=== PATIENT | female | born 1945 | race Caucasian/White ===

== ENCOUNTER 2020-03-17 11:59 | Outpatient (REF) | payer MEDICARE, SELFPAY ==
[2020-03-17 14:46] LABS: Free T4 (Free Thyroxine) 1.01 ng/dL (0.71-1.85); Thyroid Stimulating Hormone 0.69 uIU/mL (0.32-4.0)
[2020-03-19 07:58] LABS: Triiodothyronine T3 Free 3.1 pg/mL (2.3-4.2)
== END 2020-03-17 12:00 | disposition home or self-care (01) ==
LOC: HO.10HDL 11:59
PROVIDERS: Visit Provider Internal Medicine Endocrinology, Diabetes & Metabolism
DX: E05.20 Thyrotoxicosis with toxic multinodular goiter without thyrotoxic crisis or storm (principal)
CPT/HCPCS: 84439; 84443; 84481

== ENCOUNTER → 2020-03-18 09:56 | Outpatient (BNVA) | payer MEDICARE, SELFPAY | PROVIDERS: PCP Internal Medicine; Visit Provider Internal Medicine Endocrinology, Diabetes & Metabolism | DX: E05.20 Thyrotoxicosis with toxic multinodular goiter without thyrotoxic crisis or storm (principal) | CPT/HCPCS: 99212 ==

== ENCOUNTER 2020-07-05 09:08 | Outpatient (REF) | payer MEDICARE, SELFPAY ==
[2020-07-05 12:23] LABS: Alanine Aminotransferase 15 U/L (0-31); Anion Gap 14 (12-20); Aspartate Amino Transferase 18 U/L (5-31); Blood Urea Nitrogen 15 mg/dL (9-16); Calcium 8.9 mg/dL (8.4-10.2); Carbon Dioxide 26 mmol/L (22-29); Chloride 104 mmol/L (96-108); Cholesterol 228 mg/dL; Estimated Glomerular Filt Rate > 60; Glucose Fasting 98 mg/dL (60-99); HDL Cholesterol 55 mg/dL; LDL Cholesterol Calculated 144 mg/dl; Potassium 3.9 mmol/L (3.3-5.1); Sodium 140 mmol/L (135-145); Triglycerides 147 mg/dL
[2020-07-05 12:45] LABS: SARS COV2 IgG Negative (Negative)
== END 2020-07-05 09:09 | disposition home or self-care (01) ==
LOC: HO.HMGCLDS 09:08
PROVIDERS: PCP Internal Medicine; Visit Provider Internal Medicine
DX: E05.20 Thyrotoxicosis with toxic multinodular goiter without thyrotoxic crisis or storm (principal); M81.0 Age-related osteoporosis without current pathological fracture; I10 Essential (primary) hypertension; Z01.84 Encounter for antibody response examination
CPT/HCPCS: 36415; 80048; 80061; 82306; 84450; 84460; 86769

== ENCOUNTER 2020-08-25 10:43 | Outpatient (REF) | payer MEDICARE, SELFPAY ==
[2020-08-25 14:48] LABS: Free T4 (Free Thyroxine) 0.94 ng/dL (0.71-1.85); Thyroid Stimulating Hormone 0.72 uIU/mL (0.32-4.0)
[2020-08-26 06:16] LABS: Triiodothyronine T3 Total 101 ng/dL (76-181)
== END 2020-08-25 10:44 | disposition home or self-care (01) ==
LOC: HO.10HDL 10:43
PROVIDERS: Visit Provider Internal Medicine Endocrinology, Diabetes & Metabolism
DX: E05.20 Thyrotoxicosis with toxic multinodular goiter without thyrotoxic crisis or storm (principal)
CPT/HCPCS: 36415; 84439; 84443; 84480

== ENCOUNTER → 2020-08-31 13:12 | Outpatient (BNVA) | payer MEDICARE, SELFPAY | PROVIDERS: PCP Internal Medicine; Visit Provider Internal Medicine Endocrinology, Diabetes & Metabolism | DX: E05.20 Thyrotoxicosis with toxic multinodular goiter without thyrotoxic crisis or storm (principal) | CPT/HCPCS: 99212 ==

== ENCOUNTER 2020-10-28 08:55 | Outpatient (REF) | payer MEDICARE, SELFPAY ==
--- NOTE | ~2020-10-28 | MM_ITS ---
EXAMINATION: BONE DENSITOMETRY CLINICAL INDICATION: Age-related osteoporosis without current pathological fracture. COMPARISON: Previous BD dated 10/21/2018 and baseline BD dated 03/23/2008. TECHNIQUE: Using a [employer] DXA System (software version: 13.1) manufactured by [employer], dual-energy x-ray absorptiometry was performed of the lumbar spine and left hip. The images are of good technical quality. Summary results are attached. FINDINGS: AP SPINE L1-L3 (excluding L4): The data of L1-L4 has been changed to exclude the L4 vertebral body, because degenerative changes at this level may cause overestimation of lumbar spine density. Current: BMD 0.848 g/cm2, Z-score -0.8, T-score -2.7, osteoporosis, 3.0% increase from previous, 2.8% increase from baseline (<5% change is not significant). Prior: BMD 0.823 g/cm2. Baseline: BMD 0.825 g/cm2. LEFT FEMUR, NECK: Current: BMD 0.698 g/cm2, Z-score -0.4, T-score -2.4, osteopenia. Prior: BMD 0.726 g/cm2. Baseline: BMD 0.746 g/cm2. LEFT FEMUR, TOTAL: Current: BMD 0.789 g/cm2, Z-score 0.1, T-score -1.7, osteopenia, 0.3% increase from previous, 2.5% decrease from baseline (<5% change is not significant). Prior: BMD 0.787 g/cm2. Baseline: BMD 0.809 g/cm2. IDENTIFIED RISK FACTORS: Osteoporosis. Height loss. Low calcium intake. Secondary osteoporosis (hyperthyroidism). Menopause. HISTORY OF FRACTURE: None listed. MEDICATIONS: None listed. MM/XR DEXA axial skeleton IMPRESSION: 1. DIAGNOSIS: Osteoporosis based on the lowest T-score value of -2.7 in the lumbar spine applying World Health Organization criteria. 2. 10-YEAR FRACTURE RISK PREDICTION, FRAX: Major osteoporotic fracture (clinical spine, forearm, hip or shoulder) 17.6%. Hip fracture 5.7%. 3. Treatment Recommendations: NOF guidelines recommend consideration for treatment in postmenopausal women and men age 50 and older presenting with the following: -A hip or vertebral (clinical or morphometric) fracture. -T-score less than or equal to -2.5 at the femoral neck or spine after appropriate evaluation to exclude secondary causes. -Low bone mass at the hip or spine and a 10-year fracture probability by FRAX of greater than or equal to 3% for hip fracture or greater than or equal to 20% for major osteoporotic fracture based on the [place] adapted WHO algorithm. 4. Other Recommendations: All treatment decisions require clinical judgment and consideration of individual patient factors, including patient preferences, comorbidities, previous drug use, risk factors not captured in the FRAX model (e.g. frailty, falls, vitamin D deficiency, increased bone turnover, interval significant decline in bone density) and possible under or overestimation of fracture risk by FRAX. Additional medical evaluation for secondary cause of low bone mineral density may be appropriate. FUTURE SCAN RECOMMENDATION: People with diagnosed cases of osteoporosis or at high risk for fracture should have regular bone mineral density tests. For patients eligible for Medicare, routine testing is allowed once every 2 years. The testing frequency can be increased to one year for patients who have rapidly progressing disease, those who are receiving or discontinuing medical therapy to restore bone mass, or have additional risk factors.
== END 2020-10-28 08:56 | disposition home or self-care (01) ==
LOC: HO.MAMMO 08:55
PROVIDERS: Visit Provider Internal Medicine
DX: Z13.820 Encounter for screening for osteoporosis (principal); M81.0 Age-related osteoporosis without current pathological fracture; Z78.0 Asymptomatic menopausal state
CPT/HCPCS: 77080

== ENCOUNTER 2021-03-01 08:47 | Outpatient (REF) | payer MEDICARE, SELFPAY ==
[2021-03-01 11:26] LABS: Alanine Aminotransferase 20 U/L (0-31); Albumin Level 4.1 g/dL (3.5-5.0); Alkaline Phosphatase 88 U/L (39-117); Anion Gap 10 (12-20); Aspartate Amino Transferase 18 U/L (5-31); Bilirubin Total 0.9 mg/dL (0.0-1.0); Blood Urea Nitrogen 18 mg/dL (9-16); Calcium 9.5 mg/dL (8.4-10.2); Carbon Dioxide 28 mmol/L (22-29); Chloride 107 mmol/L (96-108); Estimated Glomerular Filt Rate 59; Glucose Random 74 mg/dL (60-115); Phosphorus 3.7 mg/dL (2.7-4.5); Sodium 141 mmol/L (135-145); Total Protein 7.4 g/dL (6.5-8.0)
[2021-03-01 11:49] LABS: Free T4 (Free Thyroxine) 1.03 ng/dL (0.71-1.85); Thyroid Stimulating Hormone 0.86 uIU/mL (0.32-4.0); Vitamin D 25-OH Total 32.3 ng/mL (>30)
[2021-03-03 13:41] LABS: Calcium (PTHI) 9.7 mg/dL (8.6-10.4); PTHI 83 pg/mL (14-64)
[2021-03-03 14:45] LABS: Calcium, Ionized 5.2 mg/dL (4.8-5.6)
[2021-03-03 17:47] LABS: Thyroglobulin Antibodies <1 IU/mL (< or = 1); Thyroid Peroxidase Antibodies <1 IU/mL (<9)
[2021-03-03 20:10] LABS: Triiodothyronine T3 Total 115 ng/dL (76-181)
[2021-03-05 20:03] LABS: Prot Elec - Albumin 3.9 g/dL (3.8-4.8); Prot Elec - Alpha1 0.3 g/dL (0.2-0.3); Prot Elec - Alpha2 0.7 g/dL (0.5-0.9); Prot Elec - Beta 1 0.5 g/dL (0.4-0.6); Prot Elec - Beta 2 0.4 g/dL (0.2-0.5); Prot Elec - Gamma 1.4 g/dL (0.8-1.7); Prot Elec - Total Protein 7.2 g/dL (6.1-8.1)
[2021-03-05 21:07] LABS: Thyrotropin Receptor Antibody <1.00 IU/L (<=2.00)
[2021-03-07 15:47] LABS: Thyroid Stimulating Immunoglob <89 % baseline (<140)
[2021-03-07 20:01] LABS: N-Telopeptide 45 (see note); NTXCreaRU 92 mg/dL (20-275)
== END 2021-03-01 08:48 | disposition home or self-care (01) ==
LOC: HO.LAB 08:47
PROVIDERS: PCP Internal Medicine; Visit Provider Internal Medicine
DX: E05.90 Thyrotoxicosis, unspecified without thyrotoxic crisis or storm (principal); E04.2 Nontoxic multinodular goiter; E55.9 Vitamin D deficiency, unspecified; M81.0 Age-related osteoporosis without current pathological fracture
CPT/HCPCS: 36415; 80053; 82306; 82330; 82523; 83520; 83970; 84100; 84165; 84439; 84443; 84445; 84480; 86376; 86800; 99212

== ENCOUNTER 2021-03-04 09:46 | Outpatient (REF) | payer MEDICARE, SELFPAY ==
[2021-03-04 10:01] LABS: Total Volume 24 Hour Urine 1425 mL
[2021-03-04 10:16] LABS: Creatinine, 24Hr Urine 1.3 G/Day (1.0-2.0); Creatinine, mg/dL 88.73
[2021-03-06 18:16] LABS: Calcium, 24 Hr Urine 363 mg/24 h; Calcium/Creatinine Ratio 297 mg/g creat (30-275); Creatinine 24Hr Urine 1.23 g/24 h (0.50-2.15)
== END 2021-03-04 09:47 | disposition home or self-care (01) ==
LOC: HO.LNP 09:46
PROVIDERS: Visit Provider Internal Medicine
DX: M81.0 Age-related osteoporosis without current pathological fracture (principal)
CPT/HCPCS: 82340; 82570

== ENCOUNTER 2021-03-23 12:54 | Outpatient (REF) | payer MEDICARE, SELFPAY ==
--- NOTE | ~2021-03-23 | US_ITS ---
EXAMINATION: US THYROID CLINICAL INFORMATION: Nontoxic multinodular goiter. COMPARISON: Ultrasound soft tissue head/neck thyroid dated 10/01/2018 and 06/18/2017. TECHNIQUE: Linear transducer grayscale and color Doppler examination with attention to the region of the thyroid. FINDINGS: SIZE: Measurements of the thyroid lobes and nodules are given in sagittal, anteroposterior and transverse dimensions respectively. Right Thyroid Lobe: 6.7 x 3.2 x 3.3 cm, volume 36.9 mL. Previously 5.4 x 2.6 x 3.0 cm, volume 22 mL. Parenchyma: The gland echotexture is heterogeneous. Thyroid vascularity is normal. Left Thyroid Lobe: 6.9 x 3.4 x 3.7 cm, volume 44.4 mL. Previously 5.0 x 2.5 x 3.4 cm, volume 25 mL. Parenchyma: The gland echotexture is heterogeneous. Thyroid vascularity is normal. Isthmus: 1.1 cm in maximum AP dimension. Previously 0.9 cm. Estimated total number of nodules greater than or equal to 1 cm: 6 to 10. Reporting Consultant nodules are described as follows: 1. Location: Left mid. Size: 4.0 x 2.1 x 2.5 cm, volume 11.2 mL. Previously: 3.6 x 1.9 x 2.6 cm, volume 9.3 mL. Nodule characteristics: Composition: Solid/almost completely solid (2). Echogenicity: Isoechoic (1). Shape: Not taller than wide (0). Margins: Smooth (0). Echogenic Foci: None (0). ACR TI-RADS total points: 3 ACR TI-RADS category: 3 Significant change in size (>/= 20% in 2 dimensions and minimal increase of 2 mm or 50% or greater increase in volume): No Change in features: No Change in ACR TI-RADS risk category: No 2. Location: Left mid. Size: 1.6 x 0.8 x 1.2 cm, volume 0.9 mL. Previously: 1.8 x 1.8 x 0.6 cm, volume 1.0 mL. Nodule characteristics: Composition: Spongiform (0). Echogenicity: Anechoic (0). Shape: Not taller than wide (0). Margins: Smooth (0). Echogenic Foci: None (0). ACR TI-RADS total points: 0 ACR TI-RADS category: 1 Significant change in size (>/= 20% in 2 dimensions and minimal increase of 2 mm or 50% or greater increase in volume): No Change in features: No Change in ACR TI-RADS risk category: No 3. Location: Right mid. Size: 2.3 x 1.6 x 2.1 cm, volume 4.0 mL. Previously: 2.1 x 1.5 x 1.7 cm, volume 2.8 mL. Nodule characteristics: Composition: Solid/almost completely solid (2). Echogenicity: Cannot be determined (1). Shape: Not taller than wide (0). Margins: Ill-defined (0). Echogenic Foci: None (0). ACR TI-RADS total points: 3 ACR TI-RADS category: 3 Significant change in size (>/= 20% in 2 dimensions and minimal increase of 2 mm or 50% or greater increase in volume): No Change in features: No Change in ACR TI-RADS risk category: No 4. Location: Right superior. Size: 1.1 x 0.8 x 1.5 cm, volume 0.7 mL. Previously: 1.4 x 1.0 x 1.5 cm, volume 1.1 mL. Nodule characteristics: Composition: Spongiform (0). Echogenicity: Anechoic (0). Shape: Not taller than wide (0). Margins: Smooth (0). Echogenic Foci: None (0). ACR TI-RADS total points: 0 ACR TI-RADS category: 1 Significant change in size (>/= 20% in 2 dimensions and minimal increase of 2 mm or 50% or greater increase in volume): No Change in features: No Change in ACR TI-RADS risk category: No NODES: No lymphadenopathy is seen in the tissue surrounding the thyroid gland. US/US thyroid IMPRESSION: 1. Bilateral thyroid nodules are redemonstrated. The 4.0 cm in maximal diameter left thyroid interpolar nodule meets ACR biopsy criteria and is amenable to ultrasound-guided biopsy, if clinically indicated and not already performed. Given the interim relative stability, however, continued ultrasound evaluation without biopsy at this time is a further reasonable management option. 2. There is a diffuse goiter. 3. There is heterogeneous thyroid echotexture, which can be associated with thyroiditis. ACR TI-RADS RECOMMENDATION REFERENCE: Ultrasound-guided fine-needle aspiration, followup ultrasound, no further follow up. * TR1 (0 point) and TR 2 (2 points): No FNA or follow up * TR3 (3 points): FNA if more than or equal to 2.5 cm in maximum dimension, followup ultrasound in 1, 3 and 5 years if 1.5 to 2.4 cm in maximum dimension. * TR4 (4-6 points): FNA if more than or equal to 1.5 cm in maximum dimension, followup ultrasound in 1, 2, 3 and 5 years if 1 to 1.4 cm in maximum dimension. * TR5 (more than or equal to 7 points): FNA if more than or equal to 1 cm in maximum dimension, followup ultrasound every year for 5 years if 0.5 to 0.9 cm in maximum dimension. * TR3, TR4 or TR5 nodules that are below the size threshold for follow up receive no follow up.
== END 2021-03-23 12:55 | disposition home or self-care (01) ==
LOC: HO.US 12:54
PROVIDERS: PCP Internal Medicine; Visit Provider Internal Medicine
DX: E04.2 Nontoxic multinodular goiter (principal)
CPT/HCPCS: 76536

== ENCOUNTER → 2021-04-17 11:45 | Outpatient (BNVA) | payer MEDICARE, SELFPAY | PROVIDERS: PCP Internal Medicine; Visit Provider Internal Medicine | CPT/HCPCS: Q3014 ==

== ENCOUNTER → 2021-05-08 10:15 | Outpatient (BNV) | payer MEDICARE, SELFPAY | PROVIDERS: PCP Internal Medicine; Referring Provider Internal Medicine; Visit Provider Internal Medicine Medical Oncology | DX: D47.2 Monoclonal gammopathy (principal); E89.0 Postprocedural hypothyroidism | CPT/HCPCS: 99203; 99213 ==

== ENCOUNTER 2021-05-09 08:52 | Outpatient (REF) | payer MEDICARE, SELFPAY ==
--- NOTE | ~2021-05-09 | MM_ITS ---
EXAMINATION: MM SCREENING DIGITAL BREAST TOMOSYNTHESIS, BILATERAL CLINICAL INFORMATION: Screening. Asymptomatic. The lifetime risk of breast cancer based on the Tyrer-Cuzick Model is 2%. COMPARISON: Mammography: 01/11/2020, 01/29/2019, 01/06/2019, 12/06/2017, 10/05/2016 TECHNIQUE: Digital breast tomosynthesis is performed in both the craniocaudal and mediolateral oblique views along with computer-aided detection (CAD). Synthesized 2D images are generated from the tomosynthesis. FINDINGS: There are scattered areas of fibroglandular density (ACR BI-RADS breast composition Category b). There are no significant masses, abnormal calcifications, or other abnormalities. Parenchymal pattern is similar to prior studies. No developing density or interval mass or architectural abnormality. There are scattered bilateral benign calcifications. The axilla are unremarkable. No significant changes from prior studies. MM/MM tomosynthesis screening BI IMPRESSION: No mammographic evidence of malignancy. ASSESSMENT: BI-RADS 2: Benign RECOMMENDATION: Routine annual mammography screening. This patient's information was entered into a reminder system with a target due date for their next mammogram.
== END 2021-05-09 08:53 | disposition home or self-care (01) ==
LOC: HO.MAMMO 08:52
PROVIDERS: Visit Provider Internal Medicine
DX: Z12.31 Encounter for screening mammogram for malignant neoplasm of breast (principal)
CPT/HCPCS: 77063; 77067

== ENCOUNTER 2021-07-06 07:53 | Outpatient (REF) | payer MEDICARE, SELFPAY ==
--- NOTE | 2021-07-06 09:16 | PM.OP ---
Brief Operative Note Date of Service: 07/06/21 Pre-op diagnosis: Multinodular Thyroid Procedure: This is doctor Cynthia Shah. This is an ultrasound-guided fine-needle aspiration report. Date of Examination: Indication: Multinodular Thyroid Porcedure: Procedure was explained to the patient. Alternatives, the risk and benefits were discussed. Written consent was obtained. A time-out was also obtained. After sterile preparation, fine-needle aspiration of a left mid pole 4.0 cm thyroid nodule was performed using direct ultrasound guidance to confirm accurate needle placement. Four aspirations were made using 27 gauge needles. Samples were submitted for cytology. One pass was dedicated for [employer] sequencing mirror department supervisor testing. Our attention was then turned to the right lobe. Fine-needle aspiration of a right mid pole 2.3 cm thyroid nodule was performed using direct ultrasound guidance to confirm accurate needle placement. Six aspirations were made using 27 gauge needles. Samples were submitted for cytology. One pass was dedicated for [employer] sequencing mirror department supervisor testing. The patient tolerated the procedure well. Aftercare instructions were provided. Impression: Uncomplicated fine needle aspiration biopsy of a left mid pole 4.0 cm thyroid nodule and a right mid pole 2.3 cm thyroid nodule under ultrasound guidance. Surgeon: Cynthia Shah, DO Was an Information Technology Advisor used for this Procedure?: No Estimated blood loss (mL): 0
== END 2021-07-06 07:54 | disposition home or self-care (01) ==
LOC: HO.US 07:53
PROVIDERS: Visit Provider Internal Medicine
DX: E04.2 Nontoxic multinodular goiter (principal)
CPT/HCPCS: 10005; 10006; 88172; 88173; 88177; 88305

== ENCOUNTER 2021-08-08 09:40 | Outpatient (REF) | payer MEDICARE, SELFPAY ==
[2021-08-08 11:24] LABS: Free T4 (Free Thyroxine) 1.07 ng/dL (0.71-1.85)
[2021-08-10 06:12] LABS: Triiodothyronine T3 Total 107 ng/dL (76-181)
== END 2021-08-08 09:41 | disposition home or self-care (01) ==
LOC: HO.LAB 09:40
PROVIDERS: PCP Internal Medicine; Visit Provider Internal Medicine
DX: E05.90 Thyrotoxicosis, unspecified without thyrotoxic crisis or storm (principal)
CPT/HCPCS: 36415; 84439; 84443; 84480

== ENCOUNTER → 2021-08-09 07:43 | Outpatient (BNVA) | payer MEDICARE, SELFPAY | PROVIDERS: PCP Internal Medicine; Visit Provider Internal Medicine | DX: E05.90 Thyrotoxicosis, unspecified without thyrotoxic crisis or storm (principal); E04.2 Nontoxic multinodular goiter; E55.9 Vitamin D deficiency, unspecified; E21.3 Hyperparathyroidism, unspecified; M81.0 Age-related osteoporosis without current pathological fracture | CPT/HCPCS: Q3014 ==

== ENCOUNTER → 2021-10-30 08:10 | Outpatient (BNVA) | payer MEDICARE, SELFPAY | PROVIDERS: PCP Internal Medicine; Visit Provider Internal Medicine | DX: E05.90 Thyrotoxicosis, unspecified without thyrotoxic crisis or storm (principal); E04.2 Nontoxic multinodular goiter; E21.3 Hyperparathyroidism, unspecified; M81.0 Age-related osteoporosis without current pathological fracture; E55.9 Vitamin D deficiency, unspecified | CPT/HCPCS: Q3014 ==

== ENCOUNTER 2021-11-02 08:31 | Outpatient (REF) | payer MEDICARE, SELFPAY ==
[2021-11-02 08:48] LABS: MANUAL DIFF FLAG NO
[2021-11-02 08:53] LABS: Basophils Percent Auto 0.4 % (0-2); Eosinophils Absolute Auto 0.1 X10*3/uL (0.0-0.4); Hematocrit 42.9 % (37.0-47.0); Hemoglobin 14.2 g/dl (12.0-16.0); Imm Gran Abs Auto 0.02 X10*3/uL (0.00-0.03); Imm Gran Pct Auto 0.4 % (0.0-0.4); Lymphocytes Absolute Auto 1.2 X10*3/uL (1.2-4.9); Lymphocytes Percent Auto 24.5 % (20-40); Mean Corpuscular HGB Conc 33.1 g/dl (31.0-35.0); Mean Corpuscular Hemoglobin 29.5 pg (27.0-33.0); Mean Corpuscular Volume 89.2 fL (80.0-98.0); Mean Platelet Volume 9.1 fL (9.4-12.3); Monocytes Absolute Auto 0.4 X10*3/uL (0.1-1.2); Monocytes Percent Auto 7.4 % (2-11); Neutrophils Absolute Auto 3.3 x10*3/uL (2.0-8.3); Neutrophils Percent Auto 65.3 % (45-73); Platelet Count 200 X10*3/uL (160-400); Red Blood Count 4.81 X10*6/uL (4.20-5.50); Red Cell Distribution Width 12.4 % (11.0-16.0)
[2021-11-02 09:24] LABS: Alanine Aminotransferase 17 U/L (0-31); Alkaline Phosphatase 82 U/L (39-117); Anion Gap 11 (12-20); Aspartate Amino Transferase 17 U/L (5-31); Bilirubin Total 1.2 mg/dL (0.0-1.0); Blood Urea Nitrogen 17 mg/dL (9-16); Carbon Dioxide 25 mmol/L (22-29); Chloride 109 mmol/L (96-108); Estimated Glomerular Filt Rate 54; Glucose Random 87 mg/dL (60-115); Phosphorus 3.1 mg/dL (2.7-4.5); Potassium 4.2 mmol/L (3.3-5.1); Sodium 141 mmol/L (135-145); Total Protein 7.3 g/dL (6.5-8.0)
[2021-11-02 09:47] LABS: Free T4 (Free Thyroxine) 1.18 ng/dL (0.71-1.85); Vitamin D 25-OH Total 33.9 ng/mL (>30)
[2021-11-03 11:17] LABS: Calcium (PTHI) 9.2 mg/dL (8.6-10.4); PTHI 78 pg/mL (16-77)
[2021-11-07 13:41] LABS: IgA 390 mg/dL (70-320); IgG 1387 mg/dL (600-1540); IgM 115 mg/dL (50-300)
== END 2021-11-02 08:32 | disposition home or self-care (01) ==
LOC: HO.LAB 08:31
PROVIDERS: Absent Provider Internal Medicine Medical Oncology; PCP Internal Medicine; Visit Provider Internal Medicine
DX: E21.3 Hyperparathyroidism, unspecified (principal); E04.2 Nontoxic multinodular goiter; E05.90 Thyrotoxicosis, unspecified without thyrotoxic crisis or storm; E55.9 Vitamin D deficiency, unspecified; R77.8 Other specified abnormalities of plasma proteins
CPT/HCPCS: 36415; 80053; 82306; 82784; 83970; 84100; 84439; 84443; 85025; 86334

== ENCOUNTER 2021-11-04 10:26 | Outpatient (REF) | payer MEDICARE, SELFPAY ==
[2021-11-04 11:42] LABS: Creatinine, mg/dL 60.78
[2021-11-04 13:18] LABS: Creatinine, 24Hr Urine 0.8 G/Day (1.0-2.0); Total Volume 24 Hour Urine 1350 mL
[2021-11-12 07:17] LABS: Calcium/Creatinine Ratio 206; Creatinine 24Hr Urine 0.85
[2021-11-12 07:18] LABS: Calcium, 24 Hr Urine 176
== END 2021-11-04 10:27 | disposition home or self-care (01) ==
LOC: HO.LNP 10:26
PROVIDERS: Visit Provider Internal Medicine
DX: E21.0 Primary hyperparathyroidism (principal)
CPT/HCPCS: 82340; 82570

== ENCOUNTER 2022-03-22 09:27 | Outpatient (REF) | payer MEDICARE, SELFPAY ==
[2022-03-22 12:20] LABS: Alanine Aminotransferase 17 U/L (0-31); Albumin Level 3.9 g/dL (3.5-5.0); Alkaline Phosphatase 76 U/L (39-117); Anion Gap 11 (12-20); Aspartate Amino Transferase 16 U/L (5-31); Bilirubin Total 1.2 mg/dL (0.0-1.0); Blood Urea Nitrogen 21 mg/dL (9-16); Calcium 9.4 mg/dL (8.4-10.2); Carbon Dioxide 27 mmol/L (22-29); Chloride 109 mmol/L (96-108); Estimated Glomerular Filt Rate 56; Glucose Random 93 mg/dL (60-115); Phosphorus 2.7 mg/dL (2.7-4.5); Sodium 143 mmol/L (135-145); Total Protein 6.9 g/dL (6.5-8.0); Vitamin D 25-OH Total 32.9 ng/mL (>30)
[2022-03-23 11:58] LABS: Calcium (PTHI) 9.3 mg/dL (8.6-10.4); PTHI 81 pg/mL (16-77)
== END 2022-03-22 09:28 | disposition home or self-care (01) ==
LOC: HO.10HDL 09:27
PROVIDERS: Visit Provider Internal Medicine
DX: E21.0 Primary hyperparathyroidism (principal); E55.9 Vitamin D deficiency, unspecified
CPT/HCPCS: 36415; 80053; 82306; 83970; 84100

== ENCOUNTER 2022-03-26 08:37 | Outpatient (REF) | payer MEDICARE, SELFPAY ==
[2022-03-26 11:49] LABS: Alanine Aminotransferase 16 U/L (0-31); Albumin Level 3.8 g/dL (3.5-5.0); Alkaline Phosphatase 87 U/L (39-117); Aspartate Amino Transferase 17 U/L (5-31); Bilirubin Direct 0.3 mg/dL (0.0-0.5); Bilirubin Total 0.9 mg/dL (0.0-1.0); Free T4 (Free Thyroxine) 1.05 ng/dL (0.71-1.85); Thyroid Stimulating Hormone 0.92 uIU/mL (0.32-4.0); Total Protein 6.7 g/dL (6.5-8.0); Vitamin D 25-OH Total 31.9 ng/mL (>30)
[2022-03-27 17:08] LABS: Triiodothyronine T3 Total 104 ng/dL (76-181)
== END 2022-03-26 08:38 | disposition home or self-care (01) ==
LOC: HO.10HDL 08:37
PROVIDERS: Visit Provider Internal Medicine
DX: E04.2 Nontoxic multinodular goiter (principal); E55.9 Vitamin D deficiency, unspecified; E05.90 Thyrotoxicosis, unspecified without thyrotoxic crisis or storm; E21.3 Hyperparathyroidism, unspecified; M81.0 Age-related osteoporosis without current pathological fracture
CPT/HCPCS: 36415; 80076; 82306; 84439; 84443; 84480; 99212

== ENCOUNTER 2022-03-28 09:49 | Outpatient (REF) | payer MEDICARE, SELFPAY ==
[2022-03-28 11:10] LABS: Creatinine, mg/dL 83.01
[2022-03-28 14:42] LABS: Creatinine, 24Hr Urine 0.9 G/Day (1.0-2.0); Total Volume 24 Hour Urine 1100 mL
[2022-03-30 20:53] LABS: Calcium, 24 Hr Urine 256 mg/24 h; Calcium/Creatinine Ratio 288 mg/g creat (30-275); Creatinine 24Hr Urine 0.89 g/24 h (0.50-2.15)
== END 2022-03-28 09:50 | disposition home or self-care (01) ==
LOC: HO.LNP 09:49
PROVIDERS: Visit Provider Internal Medicine
DX: E21.3 Hyperparathyroidism, unspecified (principal)
CPT/HCPCS: 82340; 82570

== ENCOUNTER 2022-04-17 07:34 | Outpatient (REF) | payer MEDICARE, SELFPAY ==
[2022-04-17 07:54] LABS: MANUAL DIFF FLAG NO
[2022-04-17 08:34] LABS: Basophils Percent Auto 0.7 % (0-2); Eosinophils Absolute Auto 0.1 X10*3/uL (0.0-0.4); Eosinophils Percent Auto 2.2 % (0-4); Hematocrit 43.2 % (37.0-47.0); Hemoglobin 14.5 g/dl (12.0-16.0); Imm Gran Abs Auto 0.01 X10*3/uL (0.00-0.03); Imm Gran Pct Auto 0.2 % (0.0-0.4); Lymphocytes Absolute Auto 1.4 X10*3/uL (1.2-4.9); Lymphocytes Percent Auto 31.5 % (20-40); Mean Corpuscular HGB Conc 33.6 g/dl (31.0-35.0); Mean Corpuscular Hemoglobin 30.5 pg (27.0-33.0); Mean Corpuscular Volume 90.9 fL (80.0-98.0); Mean Platelet Volume 9.7 fL (9.4-12.3); Monocytes Absolute Auto 0.4 X10*3/uL (0.1-1.2); Monocytes Percent Auto 7.7 % (2-11); Neutrophils Absolute Auto 2.6 x10*3/uL (2.0-8.3); Neutrophils Percent Auto 57.7 % (45-73); Platelet Count 217 X10*3/uL (160-400); Red Blood Count 4.75 X10*6/uL (4.20-5.50); Red Cell Distribution Width 12.4 % (11.0-16.0); White Blood Count 4.6 X10*3/uL (4.8-10.8)
[2022-04-17 08:59] LABS: Alanine Aminotransferase 13 U/L (0-31); Alkaline Phosphatase 69 U/L (39-117); Anion Gap 11 (12-20); Aspartate Amino Transferase 17 U/L (5-31); Bilirubin Total 1.9 mg/dL (0.0-1.0); Blood Urea Nitrogen 18 mg/dL (9-16); Calcium 9.2 mg/dL (8.4-10.2); Carbon Dioxide 27 mmol/L (22-29); Chloride 108 mmol/L (96-108); Estimated Glomerular Filt Rate 60; Glucose Random 109 mg/dL (60-115); Lactate Dehydrogenase 150 U/L (122-220); Sodium 142 mmol/L (135-145); Total Protein 7.1 g/dL (6.5-8.0)
[2022-04-20 14:44] LABS: IgA 397 mg/dL (70-320); IgG 1387 mg/dL (600-1540); IgM 120 mg/dL (50-300)
[2022-04-20 15:29] LABS: Haptoglobin 102 mg/dL (43-212)
== END 2022-04-17 07:35 | disposition home or self-care (01) ==
LOC: HO.LAB 07:34
PROVIDERS: Internal Medicine Medical Oncology; PCP Internal Medicine; Visit Provider Internal Medicine
DX: R17 Unspecified jaundice (principal); D47.2 Monoclonal gammopathy
CPT/HCPCS: 36415; 80053; 82784; 83010; 83615; 85025; 86334

== ENCOUNTER 2022-05-02 08:56 | Outpatient (REF) | payer MEDICARE, SELFPAY ==
--- NOTE | ~2022-05-02 | US_ITS ---
EXAMINATION: US ABDOMEN COMPLETE CLINICAL INFORMATION: Unspecified jaundice. COMPARISON: Renal ultrasound 05/11/2011 and 10/28/2008. TECHNIQUE: Real-time imaging of the abdominal viscera. FINDINGS: PANCREAS: The pancreatic duct is mildly prominent at 3 mm. No pancreatic masses are seen. The tail is obscured by bowel gas. ABDOMINAL AORTA: The proximal, mid, and distal segments are normal in caliber. INFERIOR VENA CAVA: Visualized portions are normal. LIVER: The liver is normal in size. The liver contour is normal. There is mild increased liver parenchymal echogenicity suggesting hepatic steatosis. No focal hepatic lesion. There is no intrahepatic biliary duct dilatation seen. GALLBLADDER: Normal. The gallbladder is physiologically distended without evidence of stones, sludge, polyps, wall thickening or pericholecystic fluid. COMMON BILE DUCT: Normal in caliber measuring 0.3 cm in diameter. RIGHT KIDNEY: A 6 mm non-obstructing stone is present in the mid kidney. No hydronephrosis or focal parenchymal lesions. The kidney measures 9.7 cm in maximum dimension. LEFT KIDNEY: A 1.5 cm parapelvic cyst is present which needs no additional imaging or followup. Multiple echogenic non-shadowing foci seen, most likely vascular. No hydronephrosis or definite renal calculi. The kidney measures 9.8 cm in maximum dimension. SPLEEN: Normal. The spleen measures 8.4 cm in maximum dimension. FREE FLUID: None. US/US abdomen complete IMPRESSION: 1. Echogenic liver suggesting hepatic steatosis. 2. Non-obstructing right renal calculus.
== END 2022-05-02 08:57 | disposition home or self-care (01) ==
LOC: HO.US 08:56
PROVIDERS: PCP Internal Medicine; Visit Provider Internal Medicine
DX: R17 Unspecified jaundice (principal)
CPT/HCPCS: 76700

== ENCOUNTER 2022-06-22 07:49 | Outpatient (REF) | payer MEDICARE, SELFPAY ==
--- NOTE | ~2022-06-22 | XR_ITS ---
EXAMINATION: XR SHOULDER, RIGHT CLINICAL INFORMATION: Pain COMPARISON: None TECHNIQUE: Three views of the right shoulder. FINDINGS: No evidence of a fracture or dislocation. Mild degenerative changes of the glenohumeral and acromioclavicular articulations. Calcific tendinosis is present. Incidental note of aortic atherosclerosis. Soft tissues are otherwise unremarkable. XR/XR shoulder RT min 2V IMPRESSION: Calcific tendinosis of the right shoulder.
== END 2022-06-22 07:50 | disposition home or self-care (01) ==
LOC: HO.HOSX 07:49
PROVIDERS: Visit Provider Physician Assistant
DX: M19.011 Primary osteoarthritis, right shoulder (principal); M75.81 Other shoulder lesions, right shoulder
CPT/HCPCS: 20610; 73030; 99202; J1040

== ENCOUNTER 2022-08-20 10:33 | Outpatient (REF) | payer MEDICARE, SELFPAY ==
[2022-08-20 14:08] LABS: Alanine Aminotransferase 13 U/L (0-31); Albumin Level 3.9 g/dL (3.5-5.0); Alkaline Phosphatase 73 U/L (39-117); Anion Gap 14 (12-20); Aspartate Amino Transferase 15 U/L (5-31); Bilirubin Total 1.3 mg/dL (0.0-1.0); Blood Urea Nitrogen 18 mg/dL (9-16); Calcium 8.4 mg/dL (8.4-10.2); Carbon Dioxide 24 mmol/L (22-29); Chloride 109 mmol/L (96-108); Estimated Glomerular Filt Rate > 60; Glucose Random 57 mg/dL (60-115); Phosphorus 3.6 mg/dL (2.7-4.5); Potassium 3.9 mmol/L (3.3-5.1); Sodium 143 mmol/L (135-145); Total Protein 6.8 g/dL (6.5-8.0)
[2022-08-20 14:15] LABS: Free T4 (Free Thyroxine) 1.45 ng/dL (0.71-1.85); Thyroid Stimulating Hormone 0.34 uIU/mL (0.32-4.0); Vitamin D 25-OH Total 44.6 ng/mL (>30)
[2022-08-22 06:08] LABS: Triiodothyronine T3 Total 98 ng/dL (76-181)
[2022-08-22 16:19] LABS: Calcium (PTHI) 8.3 mg/dL (8.6-10.4); PTHI 48 pg/mL (16-77)
== END 2022-08-20 10:34 | disposition home or self-care (01) ==
LOC: HO.10HDL 10:33
PROVIDERS: Visit Provider Internal Medicine
DX: E04.2 Nontoxic multinodular goiter (principal); E21.3 Hyperparathyroidism, unspecified; E55.9 Vitamin D deficiency, unspecified
CPT/HCPCS: 36415; 80053; 82306; 83970; 84100; 84439; 84443; 84480

== ENCOUNTER 2022-08-22 09:10 | Outpatient (REF) | payer MEDICARE, SELFPAY ==
[2022-08-22 18:18] LABS: Creatinine, mg/dL 83.61
[2022-08-22 19:05] LABS: Total Volume 24 Hour Urine 1150 mL
[2022-08-24 17:34] LABS: Calcium, 24 Hr Urine 189 mg/24 h; Calcium/Creatinine Ratio 198 mg/g creat (30-275); Creatinine 24Hr Urine 0.95 g/24 h (0.50-2.15)
== END 2022-08-22 09:11 | disposition home or self-care (01) ==
LOC: HO.10HDLNP 09:10
PROVIDERS: Visit Provider Internal Medicine
DX: E21.3 Hyperparathyroidism, unspecified (principal)
CPT/HCPCS: 82340; 82570

== ENCOUNTER → 2022-08-23 11:37 | Outpatient (BNVA) | payer MEDICARE, SELFPAY | PROVIDERS: PCP Internal Medicine; Visit Provider Internal Medicine | DX: E21.0 Primary hyperparathyroidism (principal); E04.2 Nontoxic multinodular goiter; E89.0 Postprocedural hypothyroidism; M81.0 Age-related osteoporosis without current pathological fracture; E55.9 Vitamin D deficiency, unspecified | CPT/HCPCS: 99212 ==

== ENCOUNTER 2022-09-14 09:30 | Outpatient (REF) | payer MEDICARE, SELFPAY ==
[2022-09-14 11:20] LABS: Albumin Level 3.7 g/dL (3.5-5.0); Phosphorus 3.2 mg/dL (2.7-4.5)
[2022-09-14 11:36] LABS: Free T4 (Free Thyroxine) 1.31 ng/dL (0.71-1.85)
[2022-09-17 14:18] LABS: Calcium (PTHI) 8.9 mg/dL (8.6-10.4); PTHI 42 pg/mL (16-77)
== END 2022-09-14 09:31 | disposition home or self-care (01) ==
LOC: HO.10HDL 09:30
PROVIDERS: Visit Provider Internal Medicine
DX: E21.0 Primary hyperparathyroidism (principal); E04.2 Nontoxic multinodular goiter; E89.0 Postprocedural hypothyroidism
CPT/HCPCS: 36415; 82040; 83970; 84100; 84439; 84443

== ENCOUNTER 2022-10-23 10:48 | Outpatient (REF) | payer MEDICARE, SELFPAY ==
[2022-10-23 13:29] LABS: Free T4 (Free Thyroxine) 1.17 ng/dL (0.71-1.85); Thyroid Stimulating Hormone 1.19 uIU/mL (0.32-4.0)
== END 2022-10-23 10:49 | disposition home or self-care (01) ==
LOC: HO.LAB 10:48
PROVIDERS: Visit Provider Internal Medicine
DX: E89.0 Postprocedural hypothyroidism (principal)
CPT/HCPCS: 36415; 84439; 84443

== ENCOUNTER 2022-12-25 09:20 | Outpatient (REF) | payer MEDICARE, SELFPAY ==
[2022-12-25 10:51] LABS: Alanine Aminotransferase 11 U/L (0-31); Albumin Level 3.8 g/dL (3.5-5.0); Alkaline Phosphatase 64 U/L (39-117); Anion Gap 11 (12-20); Aspartate Amino Transferase 16 U/L (5-31); Blood Urea Nitrogen 20 mg/dL (9-16); Calcium 8.6 mg/dL (8.4-10.2); Carbon Dioxide 28 mmol/L (22-29); Chloride 109 mmol/L (96-108); Estimated Glomerular Filt Rate > 60; Phosphorus 2.8 mg/dL (2.7-4.5); Potassium 3.6 mmol/L (3.3-5.1); Sodium 144 mmol/L (135-145); Total Protein 7.1 g/dL (6.5-8.0)
[2022-12-25 11:06] LABS: Free T4 (Free Thyroxine) 1.12 ng/dL (0.71-1.85); Thyroid Stimulating Hormone 1.58 uIU/mL (0.32-4.0)
[2022-12-25 11:09] LABS: Glucose Random 47 mg/dL (60-115)
[2022-12-26 11:53] LABS: Calcium (PTHI) 8.3 mg/dL (8.6-10.4); PTHI 41 pg/mL (16-77)
== END 2022-12-25 09:21 | disposition home or self-care (01) ==
LOC: HO.10HDL 09:20
PROVIDERS: Visit Provider Internal Medicine
DX: E21.0 Primary hyperparathyroidism (principal); E89.0 Postprocedural hypothyroidism; E04.2 Nontoxic multinodular goiter
CPT/HCPCS: 36415; 80053; 83970; 84100; 84439; 84443

== ENCOUNTER 2022-12-27 07:23 | Outpatient (REF) | payer MEDICARE, SELFPAY ==
[2022-12-27 08:07] LABS: Anion Gap 12 (12-20); Blood Urea Nitrogen 15 mg/dL (9-16); Calcium 8.8 mg/dL (8.4-10.2); Carbon Dioxide 26 mmol/L (22-29); Chloride 110 mmol/L (96-108); Estimated Glomerular Filt Rate 56; Glucose Fasting 110 mg/dL (60-99); Potassium 3.9 mmol/L (3.3-5.1); Sodium 144 mmol/L (135-145)
[2022-12-27 08:16] LABS: Cortisol Random 15.1 ug/dL
[2022-12-27 08:24] LABS: Free T4 (Free Thyroxine) 1.11 ng/dL (0.71-1.85); Insulin 9 uU/mL (2-29); Thyroid Stimulating Hormone 2.69 uIU/mL (0.32-4.0)
[2022-12-29 03:59] LABS: C Peptide 1.68 ng/mL (0.80-3.85); DHEA Sulfate 71 mcg/dL (4-157)
[2023-01-05 19:08] LABS: Insulin Auto Antibody <0.4 U/mL (<0.4)
[2023-01-07 07:54] LABS: Chlorpropamide None Detected; Glimepiride None Detected; Glipizide None Detected; Glyburide None Detected; Nateglinide None Detected; Pioglitazone None Detected; Repaglinide None Detected; Rosiglitazone None Detected; Tolazamide None Detected; Tolbutamide None Detected
== END 2022-12-27 07:24 | disposition home or self-care (01) ==
LOC: HO.LAB 07:23
PROVIDERS: PCP Internal Medicine; Visit Provider Internal Medicine
DX: E16.2 Hypoglycemia, unspecified (principal)
CPT/HCPCS: 36415; 80048; 80337; 82533; 82627; 83525; 84206; 84439; 84443; 84681; 86337

== ENCOUNTER 2022-12-28 07:46 | Outpatient (AMB) | payer MEDICARE, SELFPAY ==
--- NOTE | 2022-12-28 07:47 | A.OFFVIS_ITS ---
Intake Vital Signs 12/28/22 07:48 Height 5 ft 2 in Weight 131 lb 13.383 oz BMI 24.1 BP 146/68 H Blood Pressure Location Lt brachial Position Sitting Pulse 73 Pulse Source Pulse Oximeter Intake Visit Reasons: F/U Osteoporosis and Hyperthyroidism/needs 40 mins Intake Note: Patient present for Osteoporosis and Hyperthyroidism office visit. Head Of Loss Prevention Required: No Accompanied by: Self / Same As Patient Allergies Tetanus Vaccines and Toxoid Allergy (Verified 12/28/22 07:53) Rash HPI HPI Comments History of Present Illness Details 77 YO Female with a PMHx of Osteoporosis and Toxic MNG who is seen in F/U for the same. She was previously followed by Dr. Amaral and then Dr. Coello. The patient last saw Dr. Landers on 08/23/2022. More recently, she was found to have an abnormal glucose a laboratory testing. Today's visit focus is on the low glucose level. Dr. Landers repeated a fasting panel checking glucose, insulin. C- peptide but the fasting glucose was 110. Patient has no symptoms of hypoglycemia that are correlated with low blood sugar. There are times when the glucose level is normal with symptoms. Patient states when blood was drawn, it took several blood draws and she developed a hematoma . There is relationship of symptoms to eating. There are no symptoms of adrenal insufficiency. There is no history of gastric bypass surgery. She has some loose stools and some has flushing episodes . . 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 History is somewhat unclear but it does appear she did not have a thyroid uptake and scan until 2016. 24 hour uptake was increased to 35% in a heterogenous pattern, consistent with a toxic MNG. She also has multiple large thyroid nodules. On thyroid uptake and scan itt is unclear which nodules are considered hot nodules, and which are cold. 07/06/2021 she underwent FNA biopsy of he r LMP 4.0 cm and her RMP 2.3 cm thyroid nodules, both with benign cytology. She then underwent a total thyroidectomy 07/18/2022. Official surgical path was benign. She was started on levothyroxine 88 mcg PO daily subsequently, and TSH remains at goal. 2) Osteoporosis She has a long history of Osteoporosis and was treated in the past with oral bisophosphonates including actonel and fosamax. She tolerated treatment well. She states she used treatment for over 10 years, and then was placed on a drug holiday. She does not recall exactly when the drug holiday started, but believes it was over 5-10 years ago. We completed a full workup and this was initially thought to represent normocalcemic primary hyperparathyroidism with labs 03/01/2021 showing Calcium 9.7, Albumin 4.1, Vitamin D 32.3 with pTH 83. Her 24 hour urine calcium was an adequate collection and was elevated to 363. She underwent surgical resection of her L superior parathyroid 07/18/2022. Calcium is now low. At the time of her thyroid US I was unable to visualize a parathyroid gland. Workup also revealed elevated M-Protein on SPEP. She is undergoing evaluation by Heme-Onc for this, and was diagnosed with MGUS. No history of pathologic fracture or ONJ. ?Has 2 servings of dietary calcium per day in the form of milk and ice cream. Does not take a Calcium supplement. Does not take a Vitamin D sup plement. ?Denies ever using PPI, anticoagulant, antiepileptic or glucocorticoid medication. ?Does weight bearing exercise most days per week in the form of walking or yard work. ?Fracture history: Denies ?Height loss: Unsure ?EDGE INKER history: Menarche was age 11. Menses always regular. . Did not breastfeed. Menopause was age 54. Did not use HRT after. ?History of Kidney stones: Has had multiple episodes of kidney stones. Unsure if these are calcium stones. ?Has a postive Family history of Osteoporosis in her Mother. ?She is not currently UTD on dental cleanings. Thyroid US: 03/23/2021 Right Thyroid Lobe: 6.7 x 3.2 x 3.3 cm, volume 36.9 mL. Previously 5.4 x 2.6 x 3.0 cm, volume 22 mL. Parenchyma: The gland echotexture is heterogeneous. Thyroid vascularity is normal. Left Thyroid Lobe: 6.9 x 3.4 x 3.7 cm, volume 44.4 mL. Previously 5.0 x 2.5 x 3.4 cm, volume 25 mL. Parenchyma: The gland echotexture is heterogeneous. Thyroid vascularity is normal. Isthmus: 1.1 cm in maximum AP dimension. Previously 0.9 cm. Estimated total number of nodules greater than or equal to 1 cm: 6? to 10. Disk Recordist nodules are described as follows: 1.? Location: Left mid. ?? ? Size: 4.0 x 2.1 x 2.5 cm, volume 11.2 mL. ?? ? Previously: 3.6 x 1.9 x 2.6 cm, volume 9.3 mL. ?? ? Nodule characteristics: ?? ? Composition: Solid/almost completely solid (2). ?? ? Echogenicity: Isoechoic (1). ?? ? Shape: Not taller than wide (0). ?? ? Margins: Smooth (0). ?? ? Echogenic Foci: None (0). ? ACR TI-RADS total points: 3 ?? ? ACR TI-RADS category: 3 ? Significant change in size (>/= 20% in 2 dimensions and minimal increase of 2 mm or 50% or greater increase in volume): No ?? ? Change in features: No ?? ? Change in ACR TI-RADS risk category: No 2.? Location: Left mid. ?? ? Size: 1.6 x 0.8 x 1.2 cm, volume 0.9 mL. ?? ? Previously: 1.8 x 1.8 x 0.6 cm, volume 1.0 mL. ?? ? Nodule characteristics: ?? ? Composition: Spongiform (0). ?? ? Echogenicity: Anechoic (0). ?? ? Shape: Not taller than wide (0). ?? ? Margins: Smooth (0). ?? ? Echogenic Foci: None (0).? ACR TI-RADS total points: 0 ?? ? ACR TI-RADS category: 1 ? Significant change in size (>/= 20% in 2 dimensions and minimal increase of 2 mm or 50% or greater increase in volume): No ?? ? Change in features: No ?? ? Change in ACR TI-RADS risk category: No 3.? Location: Right mid. ?? ? Size: 2.3 x 1.6 x 2.1 cm, volume 4.0 mL. ?? ? Previously: 2.1 x 1.5 x 1.7 cm, volume 2.8 mL. ?? ? Nodule characteristics: ?? ? Composition: Solid/almost completely solid (2). ?? ? Echogenicity: Cannot be determined (1). ?? ? Shape: Not taller than wide (0). ?? ? Margins: Ill-defined (0). ?? ? Echogenic Foci: None (0). ? ACR TI-RADS total points: 3 ?? ? ACR TI-RADS category: 3 ? Significant change in size (>/= 20% in 2 dimensions and minimal increase of 2 mm or 50% or greater increase in volume): No ?? ? Change in features: No ?? ? Change in ACR TI-RADS risk category: No 4.? Location: Right superior. ?? ? Size: 1.1 x 0.8 x 1.5 cm, volume 0.7 mL. ?? ? Previously: 1.4 x 1.0 x 1.5 cm, volume 1.1 mL. ?? ? Nodule characteristics: ?? ? Composition: Spongiform (0). ?? ? Echogenicity: Anechoic (0). ?? ? Shape: Not taller than wide (0). ?? ? Margins: Smooth (0). ?? ? Echogenic Foci: None (0). ? ACR TI-RADS total points: 0 ?? ? ACR TI-RADS category: 1 ? Significant change in size (>/= 20% in 2 dimensions and minimal increase of 2 mm or 50% or greater increase in volume): No ?? ? Change in features: No ?? ? Change in ACR TI-RADS risk category: No NODES: No lymphadenopathy is seen in the tissue surrounding the thyroid gland. US/US thyroid IMPRESSION: ? 1. Bilateral thyroid nodules are redemon strated. The 4.0 cm in maximal diameter left thyroid interpolar nodule meets ACR biopsy criteria and is amenable to ultrasound-guided biopsy, if clinically indicated and not already performed. Given the interim relative stability, however, continued ultrasound evaluation without biopsy at this time is a further reasonable management option. ? 2. There is a diffuse goiter. ? 3. There is heterogeneous thyroid echote xture, which can be associated with thyroiditis. Thyroid Uptake and Scan: 11/15/2015 FINDINGS: The uptake is 15% at 2 hours and 35% at 24 hours. Radioiodine uptake is slightly increased; normal uptake should be between 10% and 30% at 24 hours. The radiopertechnetate thyroid scintigram demonstrates the thyroid gland to be slightly enlarged. It is normal in position. There is slightly heterogenous distribution of activity within the the gland, and there are focal areas of slightly increased uptake in the left and right lobes. Focal increased uptake is seen at the upper pole of the right lobe and in the mid and lower poles of the left lobe. The trapping function appears slightly increased. DEXA: 10/28/2020 FINDINGS: AP SPINE L1-L3 (excluding L4): The data of L1-L4 has been changed to exclude the L4 vertebral body, because degenerative changes at this level may cause overestimation of lumbar spine density. Current: BMD 0.848 g/cm2, Z-score -0.8, T-score -2.7, osteoporosis, 3.0% increase from previous, 2.8% increa se from baseline (<5% change is not significant). Prior: BMD 0.823 g/cm2. Baseline: BMD 0.825 g/cm2. LEFT FEMUR, NECK: Current: BMD 0.698 g/cm2, Z-score -0.4, T-score -2.4, osteopenia. Prior: BMD 0.726 g/cm2. Baseline: BMD 0.746 g/cm2. LEFT FEMUR, TOTAL: Current: BMD 0.789 g/cm2, Z-score 0.1, T-score -1.7, osteopenia, 0.3% increase from previous, 2.5% decrease from baseline (<5% change is not significant). Prior: BMD 0.787 g/cm2. Baseline: BMD 0.809 g/cm2. Labs: Laboratory Tests 11/02/21 11/02/21 11/04/21 08:47 08:47 Unknown Sodium Potassium Creatinine Estimated GFR Phosphorus Albumin 25-OH Vitamin D To sriram TSH 0.80 Free T4 1.18 PTH Intact Calcium (PTH Intac t) Ur 24 Hour Volume Ur Creatinine 24 H our 0.85 Ur Calcium 24 Hr 176 11/04/21 03/22/22 03/22/22 Unknown 09:33 09:33 Sodium Potassium Creatinine 0.97 Estimated GFR 56 Phosphorus 2.7 Albumin 3.9 25-OH Vitamin D To sriram 32.9 TSH Free T4 PTH Intact 81 H Calcium (PTH Intac t) 9.3 Ur 24 Hour Volume 1350 Ur Creatinine 24 H our Ur Calcium 24 Hr 08/20/22 08/20/22 10:39 10:39 Sodium 143 Potassium 3.9 Creatinine 0.90 Estimated GFR > 60 Phosphorus Albumin 3.9 25-OH Vitamin D To sriram 44.6 TSH 0.34 Free T4 PTH Intact 48 Calcium (PTH Intac t) 8.3 L Ur 24 Hour Volume Ur Creatinine 24 H our Ur Calcium 24 Hr [facility] Medical History (Updated 12/28/22 @ 08:38 by David Garay MD) Hypocalcemia Hypoglycemia Postoperative hypothyroidism Serum total bilirubin elevated Normocalcemic primary hyperparathyroidism Abnormal SPEP Multinodular non-toxic goiter Hyperparathyroidism Vitamin D deficiency Multinodular thyroid Hyperthyroidism Generalized anxiety disorder Osteoporosis Exposure to confirmed case of COVID-19 Toxic multinodular goiter Surgical History History of parathyroidectomy H/O total thyroidectomy History of tooth extraction Hx of biopsy History of back surgery Family History Father Lung cancer Mother Osteoporosis Multinodular thyroid Old age Maternal Aunt Breast cancer Social History Household Members: None Housing: House Are you a primary post acute care nurse practitioner to a significant other at home: No Do you presently have visiting nurse or other home services: No Alcohol intake: current Alcohol intake frequency: holidays/special occasions only Patient Tobacco Use Status: Never used Tobacco service: No Current occupational status: retired Current occupational exposures/hazards: No Physical Exam Const Other: Healed scar status post thyroidectomy. There are no skin rashes or lesions. Lungs are clear to auscultation heart is S1-S2. Abdominal exam is benign without the presence of any masses. Assessment & Plan Assessment & Plan (1) Hypocalcemia: Code(s): E83.51 - Hypocalcemia Plan: History of parathyroidectomy with corrected calcium slightly low. Patient has questionable symptoms of hypocalcemia. She is currently on calcium and vitamin- D supplementation but did require calcitriol after surgery. Will repeat calcium and albumin at a [facility] reference lab. If calcium is below normal, could consider reacting calcitriol. (2) Hypoglycemia: Code(s): E16.2 - Hypoglycemia, unspecified Plan: This 77-year-old white female found incidentally to have a low plasma glucose level. Hypoglycemia does not satisfy Whipple's triad and is probably artifactual in nature and due to aggressive blood draw. Patient has no symptoms suggestive of hypoglycemia. The plan is not to pursue a diagnosis of pathologic hypoglycemia. If patient do es develop symptoms of hypoglycemia will further pursue with plasma glucose (3) Flushing: Code(s): R23.2 - Flushing Plan: Patient describes episodes of flushing and feeling hot. This could be caused by Lexapro. Other concern the differential could be a carcinoid tumor but less likely. Plan is that the patient talk to her primary care provider about holding Lexapro to see if symptoms resolve. If they do not resolve, will obtain a 24 hour urine for 5 HIAA. Orders: Orders Calcium Today E83.51 - Hypocalcemia Albumin Level Today E83.51 - Hypocalcemia Coding Level of Care Code Est Pt Level 3 (12325) Diagnoses Hypocalcemia E83.51 Hypoglycemia E16.2 Flushing R23.2
[2022-12-28 07:48] VITALS: BP 146/68; PULSE 73; BMI 24.1
== END 2022-12-28 08:47 | disposition home or self-care (01) ==
PROVIDERS: PCP Internal Medicine; Visit Provider Internal Medicine Endocrinology, Diabetes & Metabolism
DX: E83.51 Hypocalcemia (principal); E16.2 Hypoglycemia, unspecified; R23.2 Flushing
CPT/HCPCS: 99213

== ENCOUNTER → 2022-12-28 07:46 | Outpatient (BNVA) | payer MEDICARE, SELFPAY | PROVIDERS: PCP Internal Medicine; Visit Provider Internal Medicine Endocrinology, Diabetes & Metabolism | DX: E83.51 Hypocalcemia (principal); E16.2 Hypoglycemia, unspecified; R23.2 Flushing; M81.0 Age-related osteoporosis without current pathological fracture | CPT/HCPCS: 99212 ==

== ENCOUNTER 2023-01-01 08:25 | Outpatient (REF) | payer MEDICARE, SELFPAY | END 2023-01-01 08:26 | disposition home or self-care (01) | LOC: HO.MAMMO 08:25 | PROVIDERS: PCP Internal Medicine; Visit Provider Internal Medicine | DX: Z12.31 Encounter for screening mammogram for malignant neoplasm of breast (principal) | CPT/HCPCS: 77063; 77067 ==

== ENCOUNTER → 2023-01-01 08:30 | Outpatient (BNV) | payer MEDICARE, SELFPAY | PROVIDERS: PCP Internal Medicine; Visit Provider Radiology Diagnostic Radiology | DX: Z12.31 Encounter for screening mammogram for malignant neoplasm of breast (principal) | CPT/HCPCS: 77063; 77067 ==

== ENCOUNTER 2023-04-05 10:12 | Outpatient (AMB) | payer MEDICARE, SELFPAY ==
--- NOTE | 2023-04-05 10:23 | A.OFFVIS_ITS ---
Intake Intake Visit Reasons: O/V rt shoulder s/p injection 06/22/22 Intake Note: Essence a 77 year old female presents today for a follow up of right shoulder, last injection 06/22/22. Patient reports last injection provided her with relief. Stating her pain returned some time in January. Her pain comes with laying on her left shoulder or reaching behind herself. She would like to repeat injection. Allergies Tetanus Vaccines and Toxoid Allergy (Verified 12/28/22 07:53) Rash HPI O/V rt shoulder s/p injection 06/22/22 HPI Details 77-year-old female who returns to the [facility] today for a follow-up of right shoulder pain. She currently states she has pain which comes with laying on her left shoulder or with reaching back. She had her last injection on 06/22/22 which provided her relief for 6 months and was able to perform most activities without pain. She would like to repeat the injection. [facility] Medical History (Updated 12/28/22 @ 08:38 by David Garay MD) Hypocalcemia Hypoglycemia Postoperative hypothyroidism Serum total bilirubin elevated Normocalcemic primary hyperparathyroidism Abnormal SPEP Multinodular non-toxic goiter Hyperparathyroidism Vitamin D deficiency Multinodular thyroid Hyperthyroidism Generalized anxiety disorder Osteoporosis Exposure to confirmed case of COVID-19 Toxic multinodular goiter Surgical History History of parathyroidectomy H/O total thyroidectomy History of tooth extraction Hx of biopsy History of back surgery Family History Father Lung cancer Mother Osteoporosis Multinodular thyroid Old age Maternal Aunt Breast cancer Social History Household Members: None Housing: House Are you a primary continuum of care manager to a significant other at home: No Do you presently have visiting nurse or other home services: No Alcohol intake: current Alcohol intake frequency: holidays/special occasions only Patient Tobacco Use Status: Never used Tobacco service: No Current occupational status: retired Current occupational exposures/hazards: No Review of Systems Const All systems reviewed & are unremarkable except as noted in HPI and below Physical Exam Const General: cooperative, healthy appearing, comfortable, no acute distress, well developed and alert Orientation/consciousness: patient oriented x3 HEENT Head: Yes normal to inspection, Yes normocephalic and Yes atraumatic Eyes General: appearance normal, both eyes and all related structures Resp Effort & Inspection: normal respiratory effort and able to speak in complete sentences Cardio Rate: regular rate Peripheral pulses: Peripheral pulses 2+ throughout GI Palpation (GI): Soft to palpation Skin Lesions: no lesions Rashes: no rashes Neuro General: patient oriented x3 Extrem Other: Right shoulder normal to inspection. Tenderness over the bicipital groove and along the deltoid region of the shoulder. Forward flexion to 175, external rotation to 90, internal rotation to S1. She has mild discomfort with liftoff testing. No other pain or weakness with RTC testing. Negative Hardy and cross body abduction. NVI. Office Procedures Joint Injection/Drain Joint Injection/Drain Primary Site: right shoulder Prep: site was prepped using aseptic technique, ethochloride spray was applied and injection warnings given Injected: 80 mg of, DepoMedrol, with 8 mL of, 1% plain lidocaine and in the subcromial space Approach Used: posterolateral Procedure: The patient tolerated the procedure well and there was some relief with the local anesthesia Coding 25401 - Glenohumeral/Tronchanteric Bursa/Intraarticular Procedure code (CPT) selection complete Assessment & Plan Assessment & Plan (1) Osteoarthritis of right acromioclavicular joint: Code(s): M19.011 - Primary osteoarthritis, right shoulder (2) Tendinitis of right rotator cuff: Code(s): M75.81 - Other shoulder lesions, right shoulder Plan We discussed options today which include steroid injection. They did consent to move forward with the right shoulder injection, which was tolerated well. I recommended rest, ice and elevation and OTC anti-inflammatories PRN for discomfort. If symptoms persist or worsens over the next 6-8 weeks, patient will contact the office, otherwise follow-up as needed. Patient Instructions: Scribed for Amy Monterroso PA-C, by Naldo Navarro medical insurance collector, on 04/05/2023 at 10:30 AM Amy SHIELDS PA-C, have personally reviewed and agree with the information entered by the scribe. Coding Level of Care Code Est Pt Level 3 (69238) Diagnoses Osteoarthritis of right acromioclavicular joint M19.011 Tendinitis of right rotator cuff M75.81 CPT Codes Coding - Joint 7: 38057 - Glenohumeral/Tronchanteric Bursa/Intraarticular ([id number])
== END 2023-04-05 11:22 | disposition home or self-care (01) ==
PROVIDERS: PCP Internal Medicine; Visit Provider Physician Assistant
DX: M19.011 Primary osteoarthritis, right shoulder (principal); M75.81 Other shoulder lesions, right shoulder
CPT/HCPCS: 20610; 99213

== ENCOUNTER → 2023-04-05 10:12 | Outpatient (BNVA) | payer MEDICARE, SELFPAY | PROVIDERS: PCP Internal Medicine; Visit Provider Physician Assistant | DX: M75.81 Other shoulder lesions, right shoulder (principal); M19.011 Primary osteoarthritis, right shoulder | CPT/HCPCS: 20610; 99212; J1040 ==

== ENCOUNTER 2023-06-05 11:52 | Outpatient (REF) | payer MEDICARE, SELFPAY ==
[2023-06-05 13:15] LABS: Albumin Level 4.3 g/dL (3.5-5.0)
[2023-06-05 13:37] LABS: Free T4 (Free Thyroxine) 1.06 ng/dL (0.71-1.85); Thyroid Stimulating Hormone 5.15 uIU/mL (0.32-4.0)
[2023-06-29 11:53] LABS: Catecholamine Frac, Total 844 pg/mL
== END 2023-06-05 11:53 | disposition home or self-care (01) ==
LOC: HO.LAB 11:52
PROVIDERS: PCP Internal Medicine; Visit Provider Internal Medicine Endocrinology, Diabetes & Metabolism
DX: E83.51 Hypocalcemia (principal); E05.90 Thyrotoxicosis, unspecified without thyrotoxic crisis or storm; I10 Essential (primary) hypertension
CPT/HCPCS: 36415; 82040; 82310; 82384; 84439; 84443

== ENCOUNTER 2023-07-15 09:30 | Outpatient (REF) | payer MEDICARE, SELFPAY ==
[2023-07-15 12:23] LABS: Free T4 (Free Thyroxine) 1.37 ng/dL (0.71-1.85); Thyroid Stimulating Hormone 1.15 uIU/mL (0.32-4.0)
[2023-07-20 22:03] LABS: Metanephrine, Free 61 pg/mL (<=57); Normetanephrines, Free 111 pg/mL (<=148); Total Metanephrine, Free 172 pg/mL (<=205)
== END 2023-07-15 09:31 | disposition home or self-care (01) ==
LOC: HO.LAB 09:30
PROVIDERS: PCP Internal Medicine; Visit Provider Internal Medicine Endocrinology, Diabetes & Metabolism
DX: F41.1 Generalized anxiety disorder (principal); E89.0 Postprocedural hypothyroidism
CPT/HCPCS: 36415; 83835; 84439; 84443

== ENCOUNTER 2023-07-22 08:52 | Outpatient (AMB) | payer MEDICARE, SELFPAY ==
--- NOTE | 2023-07-22 08:57 | A.OFFVIS_ITS ---
Intake Vital Signs 07/22/23 08:58 Height 5 ft 2 in Weight 131 lb 13.383 oz BMI 24.1 BP 170/88 H Blood Pressure Location Lt brachial Position Sitting Pulse 83 Pulse Source Pulse Oximeter Intake Visit Reasons: f/u osteoporsis/hypothyroidism-confirmed Intake Note: Patient present today for Osteoporosis/hypothyroidism follow up visit. Order Entry Representative Required: No Accompanied by: Self / Same As Patient Allergies Tetanus Vaccines and Toxoid Allergy (Verified 07/22/23 09:04) Rash Medication List - Last Reconciled 07/22/23 by David Garay MD blood sugar diagnostic (FreeStyle Lite Strips) 4x daily blood-glucose meter (FreeStyle [place] Lite kit) As directed calcium citrate-vitamin D3 200 mg-6.25 mcg (250 unit) (Citracal-D3 Petites) 1 tab PO BID 30 days cholecalciferol (vitamin D3) 50 mcg PO DAILY 30 days cyanocobalamin (vitamin B-12) 50 mcg PO DAILY escitalopram oxalate (Lexapro) 5 mg PO DAILY lancets (FreeStyle Lancets) 4x daily levothyroxine 88 mcg PO DAILY mometasone 50 mcg/actuation (Nasonex) 2 sprays intranasal DAILY PRN HPI HPI Comments History of Present Illness Details 78 YO Female with a PMHx of Osteoporosis and Toxic MNG who is seen in F/U for the same. She was previously followed by Dr. Amaral and then Dr. Coello. The patient last saw Dr. Landers on 08/23/2022. More recently, she was found to have an abnormal glucose a laboratory testing. Today's visit focus is on the low glucose level. Dr. Landers repeated a fasting panel checking glucose, insulin. C- peptide but the fasting glucose was 110. Patient has no symptoms of hypoglycemia that are correlated with low blood sugar. There are times when the glucose level is normal with symptoms. Patient states when blood was drawn, it took several blood draws and she developed a hematoma . There is relationship of symptoms to eating. There are no symptoms of adrenal insufficiency. There is no history of gastric bypass surgery. She has some loose stools and some has flushing episodes . . 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 History is somewhat unclear but it does appear she did not have a thyroid uptake and scan until 2016. 24 hour uptake was increased to 35% in a heterogenous pattern, consistent with a toxic MNG. She also has multiple large thyroid nodules. On thyroid uptake and scan itt is unclear which nodules are considered hot nodules, and which are cold. 07/06/2021 she underwent FNA biopsy of he r LMP 4.0 cm and her RMP 2.3 cm thyroid nodules, both with benign cytology. She then underwent a total thyroidectomy 07/18/2022. Official surgical path was benign. She was started on levothyroxine 88 mcg PO daily subsequently, and TSH remains at goal. 2) Osteoporosis She has a long history of Osteoporosis and was treated in the past with oral bisophosphonates including actonel and fosamax. She tolerated treatment well. She states she used treatment for over 10 years, and then was placed on a drug holiday. She does not recall exactly when the drug holiday started, but believes it was over 5-10 years ago. We completed a full workup and this was initially thought to represent normocalcemic primary hyperparathyroidism with labs 03/01/2021 showing Calcium 9.7, Albumin 4.1, Vitamin D 32.3 with pTH 83. Her 24 hour urine calcium was an adequate collection and was elevated to 363. She underwent surgical resection of her L superior parathyroid 07/18/2022. Calcium is now low. At the time of her thyroid US I was unable to visualize a parathyroid gland. Workup also revealed elevated M-Protein on SPEP. She is undergoing evaluation by Heme-Onc for this, and was diagnosed with MGUS. No history of pathologic fracture or ONJ. ?Has 2 servings of dietary calcium per day in the form of milk and ice cream. Does not take a Calcium supplement. Does not take a Vitamin D supplement. ?Denies ever using PPI, anticoagulant, antiepileptic or glucocorticoid medication. ?Does weight bearing exercise most days per week in the form of walking or yard work. 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 Menses always regular. . Did not breastfeed. Menopause was age 54. Did not use HRT after. ?History of Kidney stones: Has had multiple episodes of kidney stones. Unsure if these are calcium stones. ?Has a postive Family history of Osteoporosis in her Mother. ?She is not currently UTD on dental cleanings. Thyroid US: 03/23/2021 Right Thyroid Lobe: 6.7 x 3.2 x 3.3 cm, volume 36.9 mL. Previously 5.4 x 2.6 x 3.0 cm, volume 22 mL. Parenchyma: The gland echotexture is heterogeneous. Thyroid vascularity is normal. Left Thyroid Lobe: 6.9 x 3.4 x 3.7 cm, volume 44.4 mL. Previously 5.0 x 2.5 x 3.4 cm, volume 25 mL. Parenchyma: The gland echotexture is heterogeneous. Thyroid vascularity is normal. Isthmus: 1.1 cm in maximum AP dimension. Previously 0.9 cm. Estimated total number of nodules greater than or equal to 1 cm: 6? to 10. Roll Table Operator nodules are described as follows: 1.? Location: Left mid. ?? ? Size: 4.0 x 2.1 x 2.5 cm, volume 11.2 mL. ?? ? Previously: 3.6 x 1.9 x 2.6 cm, volume 9.3 mL. ?? ? Nodule characteristics: ?? ? Composition: Solid/almost completely solid (2). ?? ? Echogenicity: Isoechoic (1). ?? ? Shape: Not taller than wide (0). ?? ? Margins: Smooth (0). ?? ? Echogenic Foci: None (0). ? ACR TI-RADS total points: 3 ?? ? ACR TI-RADS category: 3 ? Significant change in size (>/= 20% in 2 dimensions and minimal increase of 2 mm or 50% or greater increase in volume): No ?? ? Change in features: No ?? ? Change in ACR TI-RADS risk category: No 2.? Location: Left mid. ?? ? Size: 1.6 x 0.8 x 1.2 cm, volume 0.9 mL. ?? ? Previously: 1.8 x 1.8 x 0.6 cm, volume 1.0 mL. ?? ? Nodule characteristics: ?? ? Composition: Spongiform (0). ?? ? Echogenicity: Anechoic (0). ?? ? Shape: Not taller than wide (0). ?? ? Margins: Smooth (0). ?? ? Echogenic Foci: None (0).? ACR TI-RADS total points: 0 ?? ? ACR TI-RADS category: 1 ? Significant change in size (>/= 20% in 2 dimensions and minimal increase of 2 mm or 50% or greater increase in volume): No ?? ? Change in features: No ?? ? Change in ACR TI-RADS risk category: No 3.? Location: Right mid. ?? ? Size: 2.3 x 1.6 x 2.1 cm, volume 4.0 mL. ?? ? Previously: 2.1 x 1.5 x 1.7 cm, volume 2.8 mL. ?? ? Nodule characteristics: ?? ? Composition: Solid/almost completely solid (2). ?? ? Echogenicity: Cannot be determined (1). ?? ? Shape: Not taller than wide (0). ?? ? Margins: Ill-defined (0). ?? ? Echogenic Foci: None (0). ? ACR TI-RADS total points: 3 ?? ? ACR TI-RADS category: 3 ? Significant change in size (>/= 20% in 2 dimensions and minimal increase of 2 mm or 50% or greater increase in volume): No ?? ? Change in features: No ?? ? Change in ACR TI-RADS risk category: No 4.? Location: Right superior. ?? ? Size: 1.1 x 0.8 x 1.5 cm, volume 0.7 mL. ?? ? Previously: 1.4 x 1.0 x 1.5 cm, volume 1.1 mL. ?? ? Nodule characteristics: ?? ? Composition: Spongiform (0). ?? ? Echogenicity: Anechoic (0). ?? ? Shape: Not taller than wide (0). ?? ? Margins: Smooth (0). ?? ? Echogenic Foci: None (0). ? ACR TI-RADS total points: 0 ?? ? ACR TI-RADS category: 1 ? Significant change in size (>/= 20% in 2 dimensions and minimal increase of 2 mm or 50% or greater increase in volume): No ?? ? Change in features: No ?? ? Change in ACR TI-RADS risk category: No NODES: No lymphadenopathy is seen in the tissue surrounding the thyroid gland. US/US thyroid IMPRESSION: ? 1. Bilateral thyroid nodules are redemon strated. The 4.0 cm in maximal diameter left thyroid interpolar nodule meets ACR biopsy criteria and is amenable to ultrasound-guided biopsy, if clinically indicated and not already performed. Given the interim relative stability, however, continued ultrasound evaluation without biopsy at this time is a further reasonable management option. ? 2. There is a diffuse goiter. ? 3. There is heterogeneous thyroid echote xture, which can be associated with thyroiditis. Thyroid Uptake and Scan: 11/15/2015 FINDINGS: The uptake is 15% at 2 hours and 35% at 24 hours. Radioiodine uptake is slightly increased; normal uptake should be between 10% and 30% at 24 hours. The radiopertechnetate thyroid scintigram demonstrates the thyroid gland to be slightly enlarged. It is normal in position. There is slightly heterogenous distribution of activity within the the gland, and there are focal areas of slightly increased uptake in the left and right lobes. Focal increased uptake is seen at the upper pole of the right lobe and in the mid and lower poles of the left lobe. The trapping function appears slightly increased. DEXA: 10/28/2020 FINDINGS: AP SPINE L1-L3 (excluding L4): The data of L1-L4 has been changed to exclude the L4 vertebral body, because degenerative changes at this level may cause overestimation of lumbar spine density. Current: BMD 0.848 g/cm2, Z-score -0.8, T-score -2.7, osteoporosis, 3.0% increase from previous, 2.8% increa se from baseline (<5% change is not significant). Prior: BMD 0.823 g/cm2. Baseline: BMD 0.825 g/cm2. LEFT FEMUR, NECK: Current: BMD 0.698 g/cm2, Z-score -0.4, T-score -2.4, osteopenia. Prior: BMD 0.726 g/cm2. Baseline: BMD 0.746 g/cm2. LEFT FEMUR, TOTAL: Current: BMD 0.789 g/cm2, Z-score 0.1, T-score -1.7, osteopenia, 0.3% increase from previous, 2.5% decrease from baseline (<5% change is not significant). Prior: BMD 0.787 g/cm2. Baseline: BMD 0.809 g/cm2. Labs: Laboratory Tests 11/02/21 11/02/21 11/04/21 08:47 08:47 Unknown Sodium Potassium Creatinine Estimated GFR Phosphorus Albumin 25-OH Vitamin D To sriram TSH 0.80 Free T4 1.18 PTH Intact Calcium (PTH Intac t) Ur 24 Hour Volume Ur Creatinine 24 H our 0.85 Ur Calcium 24 Hr 176 11/04/21 03/22/22 03/22/22 Unknown 09:33 09:33 Sodium Potassium Creatinine 0.97 Estimated GFR 56 Phosphorus 2.7 Albumin 3.9 25-OH Vitamin D To sriram 32.9 TSH Free T4 PTH Intact 81 H Calcium (PTH Intac t) 9.3 Ur 24 Hour Volume 1350 Ur Creatinine 24 H our Ur Calcium 24 Hr 08/20/22 08/20/22 10:39 10:39 Sodium 143 Potassium 3.9 Creatinine 0.90 Estimated GFR > 60 Phosphorus Albumin 3.9 25-OH Vitamin D To sriram 44.6 TSH 0.34 Free T4 PTH Intact 48 Calcium (PTH Intac t) 8.3 L Ur 24 Hour Volume Ur Creatinine 24 H our Ur Calcium 24 Hr Has episodes of severe HTN. Plama normetanephrines . No sx of pheo during these episodes [facility] Medical History (Updated 12/28/22 @ 08:38 by David Garay MD) Hypocalcemia Hypoglycemia Postoperative hypothyroidism Serum total bilirubin elevated Normocalcemic primary hyperparathyroidism Abnormal SPEP Multinodular non-toxic goiter Hyperparathyroidism Vitamin D deficiency Multinodular thyroid Hyperthyroidism Generalized anxiety disorder Osteoporosis Exposure to confirmed case of COVID-19 Toxic multinodular goiter Surgical History History of parathyroidectomy H/O total thyroidectomy History of tooth extraction Hx of biopsy History of back surgery Family History Father Lung cancer Mother Osteoporosis Multinodular thyroid Old age Maternal Aunt Breast cancer Social History Household Members: None Housing: House Are you a primary child day care provider to a significant other at home: No Do you presently have visiting nurse or other home services: No Alcohol intake: current Alcohol intake frequency: holidays/special occasions only Patient Tobacco Use Status: Never used Tobacco service: No Current occupational status: retired Current occupational exposures/hazards: No Physical Exam Vital Signs: Last Vital Signs Pulse 83 07/22/23 08:58 BP 170/88 H 07/22/23 08:58 BMI result Body Mass Index 24.1 Assessment & Plan Assessment & Plan (1) Hypocalcemia: Code(s): E83.51 - Hypocalcemia Plan: History of parathyroidectomy with corrected calcium slightly low. Patient has questionable symptoms of hypocalcemia. She is currently on calcium and vitamin- D supplementation but did require calcitriol after surgery. Repeat calcium is normal Continue present management (2) Flushing: Code(s): R23.2 - Flushing Plan: Patient describes episodes of flushing and feeling hot. This could be caused by Lexapro. Other concern the differential could be a carcinoid tumor but less likely. Plasma normetanephrine level was slightly elevated. Sx not compatible with pheo . Plan is check a 24 hour urine for metanephrines and normetanephrines as wll as aldosterone and renin to rule out pheochromocytoma and primary hyperaldosteronism. Orders: Orders Aldosterone Today I10 - Essential (primary) hypertension Renin Today I10 - Essential (primary) hypertension Coding Level of Care Code Est Pt Level 3 (84979) Diagnoses Hypocalcemia E83.51 Flushing R23.2
[2023-07-22 08:58] VITALS: BP 170/88; PULSE 83; BMI 24.1
== END 2023-07-22 09:32 | disposition home or self-care (01) ==
PROVIDERS: PCP Internal Medicine; Visit Provider Internal Medicine Endocrinology, Diabetes & Metabolism
DX: E83.51 Hypocalcemia (principal); R23.2 Flushing
CPT/HCPCS: 99213

== ENCOUNTER → 2023-07-22 08:52 | Outpatient (BNVA) | payer MEDICARE, SELFPAY | PROVIDERS: PCP Internal Medicine; Visit Provider Internal Medicine Endocrinology, Diabetes & Metabolism | DX: E83.51 Hypocalcemia (principal); R23.2 Flushing | CPT/HCPCS: 99212 ==

== ENCOUNTER 2023-08-22 08:02 | Outpatient (REF) | payer MEDICARE, SELFPAY ==
[2023-08-22 09:02] LABS: Glucose Random 116 mg/dL (60-115)
[2023-08-22 10:56] LABS: Creatinine, 24Hr Urine 0.8 G/Day (1.0-2.0); Total Volume 24 Hour Urine 1150 mL
[2023-08-26 12:54] LABS: Renin 0.41 ng/mL/h (0.25-5.82)
[2023-08-28 14:13] LABS: Metanephrine, Free 24U 119 mcg/24 h (90-315); Normetanephrine, Free 24U 164 mcg/24 h (122-676); Total Metanephrine, Free 24U 283 mcg/24 h (224-832); Total Volume 24U 1150 mL
== END 2023-08-22 08:03 | disposition home or self-care (01) ==
LOC: HO.LAB 08:02
PROVIDERS: PCP Internal Medicine; Visit Provider Internal Medicine Endocrinology, Diabetes & Metabolism
DX: I10 Essential (primary) hypertension (principal); R23.2 Flushing; E16.2 Hypoglycemia, unspecified
CPT/HCPCS: 36415; 82088; 82570; 82947; 83835; 84244

== ENCOUNTER 2023-08-29 08:02 | Outpatient (AMB) | payer MEDICARE, SELFPAY ==
--- NOTE | 2023-08-29 08:04 | AM.OFFWIN_ITS ---
Intake Vital Signs 08/29/23 08:23 Height 5 ft 2 in Weight 131 lb BMI 24.0 BP 140/80 H Blood Pressure Location Rt brachial Position Sitting Pulse 82 Pulse Source Pulse Oximeter Temp 98.2 F Temp Source Oral Pulse Oximetry (%) 98 Oxygen Delivery Method Room Air Intake Visit Reasons: EST/sinus pressure (lobby) Intake Note: pt is here for c/o sinus pressure since saturday Patient Tobacco Use Status: Never used Tobacco Allergies Tetanus Vaccines and Toxoid Allergy (Verified 08/29/23 08:25) Rash Do you need a note to return to daycare/school/sports/work: No HPI HPI Comments History of Present Illness Details This is a 78-year-old female who presents to the office today for sick visit. Patient complaining of left-sided ear pain, sinus pain/pressure, nasal congestion, and rhinorrhea x 5 days. She denies any fevers or chills. She states her symptoms did start to get slightly better; however, they worsened again yesterday. She has been utilizing normal saline nasal spray at home without much relief. [facility] Medical History (Updated 12/28/22 @ 08:38 by David Garay MD) Hypocalcemia Hypoglycemia Postoperative hypothyroidism Serum total bilirubin elevated Normocalcemic primary hyperparathyroidism Abnormal SPEP Multinodular non-toxic goiter Hyperparathyroidism Vitamin D deficiency Multinodular thyroid Hyperthyroidism Generalized anxiety disorder Osteoporosis Exposure to confirmed case of COVID-19 Toxic multinodular goiter Surgical History History of parathyroidectomy H/O total thyroidectomy History of tooth extraction Hx of biopsy History of back surgery Family History Father Lung cancer Mother Osteoporosis Multinodular thyroid Old age Maternal Aunt Breast cancer Social History Household Members: None Housing: House Are you a primary child care center assistant director to a significant other at home: No Do you presently have visiting nurse or other home services: No Alcohol intake: current Alcohol intake frequency: holidays/special occasions only Patient Tobacco Use Status: Never used Tobacco service: No Current occupational status: retired Current occupational exposures/hazards: No Review of Systems Const All systems reviewed & are unremarkable except as noted in HPI and below Reports no additional complaints Eyes Reports no additional complaints ENT Reports no additional complaints Card Reports no additional complaints Resp Reports no additional complaints GI Reports no additional complaints Reports no additional complaints Musc Reports no additional complaints Skin/Breast Reports system reviewed and no additional complaints, except as documented Neuro Reports no additional complaints Psych Reports no additional complaints Endo Reports no additional complaints Fahad/Lymph Reports no additional complaints Aller/Immun Reports no additional complaints Physical Exam Const Other: Vital signs reviewed. Constitutional: Non-toxic appearing. No acute distress. Well-developed and well-nourished. HEENT: Normocephalic and atraumatic. Tympanic membranes without erythema, edema, or bulging bilaterally. External auditory canals without erythema or edema bilaterally. Moist mucous membranes. No pharyngeal erythema or exudates. Mild left-sided maxillary sinus tenderness to palpation. Skin: Warm and dry. No rashes or lesions noted. Neck: Full and painless range of motion. No cervical lymphadenopathy. Cardio: Regular rate. Pulmonary: No respiratory distress. No accessory muscle usage. Gastrointestinal: Soft, nontender, and nondistended in all 4 quadrants. Musculoskeletal: Normal range of motion in joints throughout the body. No deformity or other signs of injury. Neuro: Alert and oriented x4. Cranial nerves 2-12 grossly intact. No focal deficits appreciated. Psych: Normal mood and affect. Assessment & Plan Assessment & Plan (1) Acute bacterial rhinosinusitis: Code(s): J01.90 - Acute sinusitis, unspecified; B96.89 - Other specified bacterial agents as the cause of diseases classified elsewhere Plan: This is a 78-year-old female who presented to the walk-in clinic complaining of left-sided ear pain, nasal congestion/rhinorrhea, and sinus pain/pressure. History and physical most consistent with acute bacterial rhinosinusitis given double worsening of symptoms. Patient sent home on PO amoxicillin/clavulanate 875/125 mg twice daily x7 days. Recommended continuing symptomatic management including ibuprofen/acetaminophen as needed for pain/fevers as long as she has no medical contraindications, normal saline nasal spray, and [id number] decongestants such as guaifenesin. Patient was advised to follow-up here or proceed to the emergency room for persistent or worsening symptoms. Patient verbalized understanding and she is in agreement with the plan. Medications: New amoxicillin-pot clavulanate 875-125 mg 1 tab PO BID 14 tabs 0RF Coding Level of Care Code Est Pt Level 3 (36260) Diagnoses Acute bacterial rhinosinusitis J01.90; B96.89
[2023-08-29 08:23] VITALS: BP 140/80; PULSE 82; TEMP 36.8; O2SAT 98; BMI 24.0
== END 2023-08-29 08:50 | disposition home or self-care (01) ==
PROVIDERS: PCP Internal Medicine; Visit Provider Physician Assistant Medical
DX: J01.90 Acute sinusitis, unspecified (principal); B96.89 Other specified bacterial agents as the cause of diseases classified elsewhere
CPT/HCPCS: 99213

== ENCOUNTER 2023-09-24 08:28 | Outpatient (AMB) | payer MEDICARE, SELFPAY ==
[2023-09-24 08:37] VITALS: BP 142/76; PULSE 52; O2SAT 98; BMI 22.7
--- NOTE | 2023-09-24 08:37 | AM.OFFVISMDC ---
Intake Vital Signs 09/24/23 08:37 09/24/23 09:38 Height 5 ft 2 in Weight 124 lb BMI 22.7 BP 142/76 H 130/75 Blood Pressure Location Lt brachial Rt brachial Position Sitting Sitting Pulse 52 Pulse Source Pulse Oximeter Pulse Oximetry (%) 98 Oxygen Delivery Method Room Air Intake Visit Reasons: SWV G0439 Intake Note: Pt is here today for AWV. Pt has a Molst form on file scanned. Mammo done 12/2022, labs done last month. Allergies Tetanus Vaccines and Toxoid Allergy (Verified 09/24/23 09:43) Rash Medication List - Last Reconciled 09/24/23 by Erika Sharif MD blood sugar diagnostic (FreeStyle Lite Strips) 4x daily blood-glucose meter (FreeStyle Baylis Lite kit) As directed calcium citrate-vitamin D3 200 mg-6.25 mcg (250 unit) (Citracal-D3 Petites) 1 tab PO BID 30 days cyanocobalamin (vitamin B-12) 50 mcg PO DAILY escitalopram oxalate (Lexapro) 5 mg PO DAILY lancets (FreeStyle Lancets) 4x daily levothyroxine 88 mcg PO DAILY mometasone 50 mcg/actuation (Nasonex) 2 sprays intranasal DAILY PRN HPI SWV G0439 HPI Details SWV ? 78 year old with history of postoperative hypothyroidism, osteoarthritis, normocalcemia primary hyperparathyroidism, history of multinodular nontoxic goiter with hyperthyroidism, generalized anxiety disorder osteoporosis, presents for her ? Annual Wellness Visit, subsequent visit.? She has had her mammogram done last year, 12/1922 which came back with negative findings. No longer gets Pap smears. She has never had a colon cancer screening, does not want to get any done. She has been diagnosed to have osteoporosis as noted on bone density scan done significant [id number] but does not want to get any further testing and refused treatment. She is up-to-date with her screening, done in 2020 which showed an LDL of 144 mg/dL, diabetes mellitus screening done 12/27/2022 showed fasting glucose at 110 mg/dL. She has had for COVID vaccine but does not want to get further booster shots, does not want to get a flu shot pneumococcal vaccine or shingles vaccine. ? Medical / Social History Reviewed? Past Medical History ?Yes . ? [place] of Care / Care Team list updated ?Yes . ? Surgical/Hospitalization History ?Yes . ? Current Medications (including OTC and supplements) ?Yes . ? Family History ?Yes . ? Tobacco Control form ?Yes . ? AUDIT-C (Alcohol use) form ?Yes . ? Illicit drug use in Social History ?Yes . ? Current diagnosis of depression? ?No ? Appropriate PHQ2/PHQ9 completed ?Yes . ? Data entered by ?Cutting Machine Tender Helper and reviewed by provider ? Fall Risk ? Fall History? Have you had any falls with injury in the past year? ?No . ? Have you had two or more falls in the past year? ?No . ? Fall Risk Assessment: ?No falls in the past year . ? HRA filled out by the patient, reviewed by Provider and scanned. ?SWV ? Balance? Romberg ?negative ? Tandem walk ?Yes . ? Walk and Turn ?Yes . ? Rise from sit to stand ?Yes . ?Vision? Corrective lens none ? Vision screen ? Up-to-date, sees Dr. Diaz at Dr. Del Castillo's office in [place] ?Hearing? Whisper test ?pass . ?Written Plan?Completed. See Patient Documents.? [facility] Medical History (Updated 09/25/23 @ 16:52 by Erika Sharif MD) Hypocalcemia Hypoglycemia Postoperative hypothyroidism Serum total bilirubin elevated Normocalcemic primary hyperparathyroidism Abnormal SPEP Multinodular non-toxic goiter Hyperparathyroidism Vitamin D deficiency Multinodular thyroid Hyperthyroidism Generalized anxiety disorder Osteoporosis Exposure to confirmed case of COVID-19 Toxic multinodular goiter Surgical History History of parathyroidectomy H/O total thyroidectomy History of tooth extraction Hx of biopsy History of back surgery Family History Father Lung cancer Mother Osteoporosis Multinodular thyroid Old age Maternal Aunt Breast cancer Social History Household Members: None Housing: House Are you a primary health care specialist to a significant other at home: No Do you presently have visiting nurse or other home services: No Alcohol intake: current Alcohol intake frequency: holidays/special occasions only Patient Tobacco Use Status: Never used Tobacco service: No Current occupational status: retired Current occupational exposures/hazards: No Questionnaire Medicare Wellness Checkup What [age] What gender do you identify with?: female During the past 4 weeks, how much have you been bothered by emotional problems such as feeling anxious, depressed, irritable, sad or downhearted, and blue?: slightly During the past 4 weeks, has your physical & emotional health limited your social activities with family, friends, neighbors, or groups?: not at all During the past 4 weeks, how much bodily pain have you generally had?: no pain During the past 4 weeks, was someone available to help you if you needed & wanted help?: no, not at all During the past 4 weeks, what was the hardest physical activity you could do for at least 2 minutes?: very heavy Can you get to places out of walking distance without help? (For eg., can you travel alone on buses, taxis or drive your car?): Yes Can you go shopping for groceries or clothes without someone's help?: Yes Can you prepare your own meals?: Yes Can you do your housework without help?: Yes Because of any health problems, do you need the help of another person with your personal care needs such as eating, bathing, dressing or getting around the house?: No Can you handle your own money without help?: Yes During the past 4 weeks, how would you rate your health in general?: excellent During the past 4 weeks how have things been going for you?: pretty well Are you having difficulties driving your car?: no Do you always fasten your seat belt when you are in a car?: yes, usually During past 4 weeks, have you been bothered by the following: never: Falling or dizzy when standing up, Sexual problems?, Trouble eating well?, Teeth or denture problems? and Problems using the telephone? and sometimes: Tiredness or fatigue? Have you fallen 2 or more times in the past year?: No Are you afraid of falling?: No Are you a smoker?: no During the past 4 weeks, how many drinks of wine, beer, or other alcoholic beverages did you have?: 1 drink or less per week Do you exercise for about 20 minutes 3 or more times a week?: yes, most of the time Have you been given information to help with the following?: no: Hazards in your house that might hurt you? and no: Keeping track of your medications? How often do you have trouble taking medicines the way you have been told to take them?: I always take medicine as prescribed How confident are you that you can control & manage most of your health problems?: very confident What is your race?: White Mini Mental State Exam (MMSE) Orientation What is the (year) (season) (date) (day) (month)?: year (2023), season (Spring), date (09/24/2023), day (Saturday) and month (September) Where are we (state) (county) (town or city) (hospital) (floor)?: state ([place]), county ([place]), town or city ([place]) and hospital/clinic ([facility]) Score Score: 9 Activity of Daily Living Bathing - sponge bath, tub bath or shower: receives no assistance (gets in/out by self, if usual bathing means Dressing - getting clothes from closets & drawers, including inner/outer garments & fasteners.: gets clothes & gets completely dressed without help Toileting - going to the 'toilet room' for urine/bowel elimination & cleaning self/arranging clothes: goes to toilet room, cleans self, arranges clothes without help Transfer: moves in & out of bed and chair without help (may use support object) Continence: controls urination/bowel movements completely by self Feeding: feeds self without help Total Score: 0 Information obtained from: patient Using telephone: independent Traveling: independent Shopping: independent Preparing meals: independent Housework: independent Taking medicine: independent Managing money: independent PHQ-9 Over the last 2 weeks, how often have you been bothered by any of the following problems? 1. Little interest or pleasure in doing things: not at all 2. Feeling down, depressed, or hopeless: not at all 3. Trouble falling or staying asleep, or sleeping too much: several days 4. Feeling tired or having little energy: several days 5. Poor appetite or overeating: not at all 6. Feeling bad about yourself - or that you are a failure or have let yourself or your family down: not at all 7. Trouble concentrating on things, such as reading the newspaper or watching television: not at all 8. Moving or speaking so slowly that other people could have noticed. Or the opposite - being so fidgety or restless that you have been moving around a lot more than usual: not at all 9. Thoughts that you would be better off or of hurting yourself in some way: not at all Total score: 2 Depression Screening Interpretation: Negative Depression Screening Done: Yes Source: Developed by Drs. David Calderon, So Sandoval, Beka Rene and colleagues, with an educational hemalatha from [employer]. Physical Exam Vital Signs: Last Vital Signs Pulse 52 09/24/23 08:37 BP 130/75 09/24/23 09:38 Pulse Ox 98 09/24/23 08:37 Oxygen Delivery Method Room Air 09/24/23 08:37 BMI result Body Mass Index 22.7 Assessment & Plan Assessment & Plan (1) Postoperative hypothyroidism: Code(s): E89.0 - Postprocedural hypothyroidism Plan: On levothyroxine 88 mcg taken daily in the a.m. (2) Osteoporosis: Code(s): M81.0 - Age-related osteoporosis without current pathological fracture Qualifiers: Osteoporosis type: age-related Presence of current pathological fracture: without current pathological fracture Qualified Code(s): M81.0 - Age-related osteoporosis without current pathological fracture Plan: Patient declines treat, stays active, plays golf at least 2 to 3 times a week and does her own yard work (3) Generalized anxiety disorder: Code(s): F41.1 - Generalized anxiety disorder Plan: On escitalopram 5 mg daily (4) Osteoarthritis of right acromioclavicular joint: Code(s): M19.011 - Primary osteoarthritis, right shoulder Plan: Takes Tylenol as needed. (5) Encounter for subsequent annual wellness visit (AWV) in Medicare patient: Code(s): Z00.00 - Encounter for general adult medical examination without abnormal findings Plan: Medical wellness checklist reviewed, discussed with patient and updated. Patient declines all vaccinations, does not want to get further bone density screening or colon cancer screening. (6) Advanced directives, counseling/discussion: Code(s): Z71.89 - Other specified counseling Plan: MOLST form already completed a previous visit, has a copy of her healthcare proxy at home, will give us a copy next please Quality Reporting (2019) Depression/Bipolar (159/160/161/177) PHQ-9: Total score: 2 Coding Level of Care Code Medicare Subsequent (G0439) Diagnoses Postoperative hypothyroidism E89.0 Age-related osteoporosis without current pathological fracture M81.0 Osteoporosis type: age-related Presence of current pathological fracture: without current pathological fracture Generalized anxiety disorder F41.1 Osteoarthritis of right acromioclavicular joint M19.011 Encounter for subsequent annual wellness visit (AWV) in Medicare patient Z00.00 Advanced directives, counseling/discussion Z71.89 CPT Codes Advance Care Planning - Time spent: 1-15 minutes, on File ([id number]) Advance Care Planning Advance Care Planning discussion: Exists, not on file Date of discussion: 09/24/23 Who was present: Patient Forms completed: Health Care Proxy (Has at home, will bring on next visit) and MOLST (Completed 04/30/2022) Time spent: 1-15 minutes, on File Actual minutes spent: 15
[2023-09-24 09:38] VITALS: BP 130/75
== END 2023-09-24 09:45 | disposition home or self-care (01) ==
PROVIDERS: PCP Internal Medicine; Visit Provider Internal Medicine
DX: Z00.00 Encounter for general adult medical examination without abnormal findings (principal); E89.0 Postprocedural hypothyroidism; M81.0 Age-related osteoporosis without current pathological fracture; F41.1 Generalized anxiety disorder; M19.011 Primary osteoarthritis, right shoulder; Z71.89 Other specified counseling
CPT/HCPCS: 1123F; G0439

== ENCOUNTER 2023-10-22 08:53 | Outpatient (AMB) | payer MEDICARE, SELFPAY ==
[2023-10-22 08:56] VITALS: BP 174/86; PULSE 65; BMI 23.3
--- NOTE | 2023-10-22 08:56 | MHC.OFFVIS ---
Vital Signs 10/22/23 08:56 Height 5 ft 2 in Weight 127 lb 3.307 oz BMI 23.3 BP 174/86 H Blood Pressure Location Lt brachial Position Sitting Pulse 65 Pulse Source Pulse Oximeter Intake Visit Reasons: f/u hypertension-confirmed Intake Note: Patient present today for hypertension follow up visit. Dixonac Operator Required: No Accompanied by: Self / Same As Patient Allergies Tetanus Vaccines and Toxoid Allergy (Verified 10/22/23 09:03) Rash HPI Comments Details: 78 YO Female with a PMHx of Osteoporosis and Toxic MNG who is seen in F/U for the same. She was previously followed by Dr. Amaral and then Dr. Coello. The patient last saw Dr. Landers on 08/23/2022. More recently, she was found to have an abnormal glucose a laboratory testing. Today's visit focus is on the low glucose level. Dr. Landers repeated a fasting panel checking glucose, insulin. C-peptide but the fasting glucose was 110. Patient has no symptoms of hypoglycemia that are correlated with low blood sugar. There are times when the glucose level is normal with symptoms. Patient states when blood was drawn, it took several blood draws and she developed a hematoma . There is relationship of symptoms to eating. There are no symptoms of adrenal insufficiency. There is no history of gastric bypass surgery. She has some loose stools and some has flushing episodes . . 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 History is somewhat unclear but it does appear she did not have a thyroid uptake and scan until 2016. 24 hour uptake was increased to 35% in a heterogenous pattern, consistent with a toxic MNG. She also has multiple large thyroid nodules. On thyroid uptake and scan itt is unclear which nodules are considered hot nodules, and which are cold. 07/06/2021 she underwent FNA biopsy of her LMP 4.0 cm and her RMP 2.3 cm thyroid nodules, both with benign cytology. She then underwent a total thyroidectomy 07/18/2022. Official surgical path was benign. She was started on levothyroxine 88 mcg PO daily subsequently, and TSH remains at goal. 2) Osteoporosis She has a long history of Osteoporosis and was treated in the past with oral bisophosphonates including actonel and fosamax. She tolerated treatment well. She states she used treatment for over 10 years, and then was placed on a drug holiday. She does not recall exactly when the drug holiday started, but believes it was over 5-10 years ago. We completed a full workup and this was initially thought to represent normocalcemic primary hyperparathyroidism with labs 03/01/2021 showing Calcium 9.7, Albumin 4.1, Vitamin D 32.3 with pTH 83. Her 24 hour urine calcium was an adequate collection and was elevated to 363. She underwent surgical resection of her L superior parathyroid 07/18/2022. Calcium is now low. At the time of her thyroid US I was unable to visualize a parathyroid gland. Workup also revealed elevated M-Protein on SPEP. She is undergoing evaluation by Heme-Onc for this, and was diagnosed with MGUS. No history of pathologic fracture or ONJ. ?Has 2 servings of dietary calcium per day in the form of milk and ice cream. Does not take a Calcium supplement. Does not take a Vitamin D supplement. ?Denies ever using PPI, anticoagulant, antiepileptic or glucocorticoid medication. ?Does weight bearing exercise most days per week in the form of walking or yard work. 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 Menses always regular. . Did not breastfeed. Menopause was age 54. Did not use HRT after. ?History of Kidney stones: Has had multiple episodes of kidney stones. Unsure if these are calcium stones. ?Has a postive Family history of Osteoporosis in her Mother. ?She is not currently UTD on dental cleanings. Thyroid US: 03/23/2021 Right Thyroid Lobe: 6.7 x 3.2 x 3.3 cm, volume 36.9 mL. Previously 5.4 x 2.6 x 3.0 cm, volume 22 mL. Parenchyma: The gland echotexture is heterogeneous. Thyroid vascularity is normal. Left Thyroid Lobe: 6.9 x 3.4 x 3.7 cm, volume 44.4 mL. Previously 5.0 x 2.5 x 3.4 cm, volume 25 mL. Parenchyma: The gland echotexture is heterogeneous. Thyroid vascularity is normal. Isthmus: 1.1 cm in maximum AP dimension. Previously 0.9 cm. Estimated total number of nodules greater than or equal to 1 cm: 6? to 10. Regional Facilities Manager nodules are described as follows: 1.? Location: Left mid. ?? ? Size: 4.0 x 2.1 x 2.5 cm, volume 11.2 mL. ?? ? Previously: 3.6 x 1.9 x 2.6 cm, volume 9.3 mL. ?? ? Nodule characteristics: ?? ? Composition: Solid/almost completely solid (2). ?? ? Echogenicity: Isoechoic (1). ?? ? Shape: Not taller than wide (0). ?? ? Margins: Smooth (0). ?? ? Echogenic Foci: None (0). ? ACR TI-RADS total points: 3 ?? ? ACR TI-RADS category: 3 ? Significant change in size (>/= 20% in 2 dimensions and minimal increase of 2 mm or 50% or greater increase in volume): No ?? ? Change in features: No ?? ? Change in ACR TI-RADS risk category: No 2.? Location: Left mid. ?? ? Size: 1.6 x 0.8 x 1.2 cm, volume 0.9 mL. ?? ? Previously: 1.8 x 1.8 x 0.6 cm, volume 1.0 mL. ?? ? Nodule characteristics: ?? ? Composition: Spongiform (0). ?? ? Echogenicity: Anechoic (0). ?? ? Shape: Not taller than wide (0). ?? ? Margins: Smooth (0). ?? ? Echogenic Foci: None (0).? ACR TI-RADS total points: 0 ?? ? ACR TI-RADS category: 1 ? Significant change in size (>/= 20% in 2 dimensions and minimal increase of 2 mm or 50% or greater increase in volume): No ?? ? Change in features: No ?? ? Change in ACR TI-RADS risk category: No 3.? Location: Right mid. ?? ? Size: 2.3 x 1.6 x 2.1 cm, volume 4.0 mL. ?? ? Previously: 2.1 x 1.5 x 1.7 cm, volume 2.8 mL. ?? ? Nodule characteristics: ?? ? Composition: Solid/almost completely solid (2). ?? ? Echogenicity: Cannot be determined (1). ?? ? Shape: Not taller than wide (0). ?? ? Margins: Ill-defined (0). ?? ? Echogenic Foci: None (0). ? ACR TI-RADS total points: 3 ?? ? ACR TI-RADS category: 3 ? Significant change in size (>/= 20% in 2 dimensions and minimal increase of 2 mm or 50% or greater increase in volume): No ?? ? Change in features: No ?? ? Change in ACR TI-RADS risk category: No 4.? Location: Right superior. ?? ? Size: 1.1 x 0.8 x 1.5 cm, volume 0.7 mL. ?? ? Previously: 1.4 x 1.0 x 1.5 cm, volume 1.1 mL. ?? ? Nodule characteristics: ?? ? Composition: Spongiform (0). ?? ? Echogenicity: Anechoic (0). ?? ? Shape: Not taller than wide (0). ?? ? Margins: Smooth (0). ?? ? Echogenic Foci: None (0). ? ACR TI-RADS total points: 0 ?? ? ACR TI-RADS category: 1 ? Significant change in size (>/= 20% in 2 dimensions and minimal increase of 2 mm or 50% or greater increase in volume): No ?? ? Change in features: No ?? ? Change in ACR TI-RADS risk category: No NODES: No lymphadenopathy is seen in the tissue surrounding the thyroid gland. US/US thyroid IMPRESSION: ? 1. Bilateral thyroid nodules are redemonstrated. The 4.0 cm in maximal diameter left thyroid interpolar nodule meets ACR biopsy criteria and is amenable to ultrasound-guided biopsy, if clinically indicated and not already performed. Given the interim relative stability, however, continued ultrasound evaluation without biopsy at this time is a further reasonable management option. ? 2. There is a diffuse goiter. ? 3. There is heterogeneous thyroid echotexture, which can be associated with thyroiditis. Thyroid Uptake and Scan: 11/15/2015 FINDINGS: The uptake is 15% at 2 hours and 35% at 24 hours. Radioiodine uptake is slightly increased; normal uptake should be between 10% and 30% at 24 hours. The radiopertechnetate thyroid scintigram demonstrates the thyroid gland to be slightly enlarged. It is normal in position. There is slightly heterogenous distribution of activity within the the gland, and there are focal areas of slightly increased uptake in the left and right lobes. Focal increased uptake is seen at the upper pole of the right lobe and in the mid and lower poles of the left lobe. The trapping function appears slightly increased. DEXA: 10/28/2020 FINDINGS: AP SPINE L1-L3 (excluding L4): The data of L1-L4 has been changed to exclude the L4 vertebral body, because degenerative changes at this level may cause overestimation of lumbar spine density. Current: BMD 0.848 g/cm2, Z-score -0.8, T-score -2.7, osteoporosis, 3.0% increase from previous, 2.8% increase from baseline (<5% change is not significant). Prior: BMD 0.823 g/cm2. Baseline: BMD 0.825 g/cm2. LEFT FEMUR, NECK: Current: BMD 0.698 g/cm2, Z-score -0.4, T-score -2.4, osteopenia. Prior: BMD 0.726 g/cm2. Baseline: BMD 0.746 g/cm2. LEFT FEMUR, TOTAL: Current: BMD 0.789 g/cm2, Z-score 0.1, T-score -1.7, osteopenia, 0.3% increase from previous, 2.5% decrease from baseline (<5% change is not significant). Prior: BMD 0.787 g/cm2. Baseline: BMD 0.809 g/cm2. Labs: Laboratory Tests 11/02/21 11/02/21 11/04/21 08:47 08:47 Unknown Sodium Potassium Creatinine Estimated GFR Phosphorus Albumin 25-OH Vitamin D Total TSH 0.80 Free T4 1.18 PTH Intact Calcium (PTH Intact) Ur 24 Hour Volume Ur Creatinine 24 Hour 0.85 Ur Calcium 24 Hr 176 11/04/21 03/22/22 03/22/22 Unknown 09:33 09:33 Sodium Potassium Creatinine 0.97 Estimated GFR 56 Phosphorus 2.7 Albumin 3.9 25-OH Vitamin D Total 32.9 TSH Free T4 PTH Intact 81 H Calcium (PTH Intact) 9.3 Ur 24 Hour Volume 1350 Ur Creatinine 24 Hour Ur Calcium 24 Hr 08/20/22 08/20/22 10:39 10:39 Sodium 143 Potassium 3.9 Creatinine 0.90 Estimated GFR > 60 Phosphorus Albumin 3.9 25-OH Vitamin D Total 44.6 TSH 0.34 Free T4 PTH Intact 48 Calcium (PTH Intact) 8.3 L Ur 24 Hour Volume Ur Creatinine 24 Hour Ur Calcium 24 Hr Has episodes of severe HTN. Plama normetanephrines . No sx of pheo during these episodes . Workup revealed normal metanephrines and normetanephrines but aldosterone was slightly increased and reddened low normal suggesting possibility of primary hyperaldosteronism. Patient is here to discuss results PENDING SALE TO [facility] Medical History (Updated 10/22/23 @ 09:08 by David Garay MD) Hypertension Hypocalcemia Hypoglycemia Postoperative hypothyroidism Serum total bilirubin elevated Normocalcemic primary hyperparathyroidism Abnormal SPEP Multinodular non-toxic goiter Hyperparathyroidism Vitamin D deficiency Multinodular thyroid Hyperthyroidism Generalized anxiety disorder Osteoporosis Exposure to confirmed case of COVID-19 Toxic multinodular goiter Surgical History History of parathyroidectomy H/O total thyroidectomy History of tooth extraction Hx of biopsy History of back surgery Family History Father Lung cancer Mother Osteoporosis Multinodular thyroid Old age Maternal Aunt Breast cancer Social History Household Members: None Housing: House Are you a primary workforce investment act career manager to a significant other at home: No Do you presently have visiting nurse or other home services: No Alcohol intake: current Alcohol intake frequency: holidays/special occasions only Patient Tobacco Use Status: Never used Tobacco service: No Current occupational status: retired Current occupational exposures/hazards: No Physical Exam Vital Signs: Last Vital Signs Pulse 65 10/22/23 08:56 BP 174/86 H 10/22/23 08:56 BMI result Body Mass Index 23.3 Assessment & Plan Assessment & Plan (1) Hypertension: Code(s): I10 - Essential (primary) hypertension Category: Medical Plan: Blood pressure remains elevated and workup suggest possibility of primary hyperaldosteronism. We will talk to patient about further workup which probably should be done in a tertiary care center like [facility]. If patient is not interested ultimately undergoing surgery, could provide a trial of a aldosterone mike like spironolactone.. After long discussion with the patient, we decided to refer her to Myke Pisano a specialist in secondary hypertension and primary hyperaldosteronism for further workup (2) Postoperative hypothyroidism: Code(s): E89.0 - Postprocedural hypothyroidism Category: Medical Plan: Patient feeling fatigue. Will recheck TSH and free T4 and adjust levothyroxine accordingly Orders: Orders Free T4 (Free Thyroxine) Today E89.0 - Postprocedural hypothyroidism Thyroid Stimulating Hormone Today E89.0 - Postprocedural hypothyroidism Referrals Endocrinology Referral I10 - Essential (primary) hypertension Coding Level of Care Code Est Pt Level 3 (74852) Diagnoses Hypertension I10 Postoperative hypothyroidism E89.0
== END 2023-10-22 09:39 | disposition home or self-care (01) ==
PROVIDERS: PCP Internal Medicine; Visit Provider Internal Medicine Endocrinology, Diabetes & Metabolism
DX: I10 Essential (primary) hypertension (principal); E89.0 Postprocedural hypothyroidism
CPT/HCPCS: 99213

== ENCOUNTER 2023-10-22 08:53 | Outpatient (REF) | payer MEDICARE, SELFPAY ==
[2023-10-22 11:31] LABS: Free T4 (Free Thyroxine) 1.21 ng/dL (0.71-1.85); Thyroid Stimulating Hormone 0.29 uIU/mL (0.32-4.0)
== END 2023-10-22 08:54 | disposition home or self-care (01) ==
LOC: HO.LAB 08:53
PROVIDERS: PCP Internal Medicine; Visit Provider Internal Medicine Endocrinology, Diabetes & Metabolism
DX: E89.0 Postprocedural hypothyroidism (principal); I10 Essential (primary) hypertension; M81.0 Age-related osteoporosis without current pathological fracture
CPT/HCPCS: 36415; 84439; 84443; 99212

== ENCOUNTER 2024-03-26 08:00 | Outpatient (REF) | payer MEDICARE, SELFPAY ==
[2024-03-26 10:44] LABS: Influenza A PCR NEGATIVE (Negative); Influenza B PCR NEGATIVE (Negative); Resp Syncy Virus RNA Qual PCR NEGATIVE (Negative); SARS COV2 PCR INHOUSE NEGATIVE (Negative)
== END 2024-03-26 08:01 | disposition home or self-care (01) ==
LOC: HO.LAB 08:00
PROVIDERS: Physician Assistant; PCP Internal Medicine
DX: J06.9 Acute upper respiratory infection, unspecified (principal); Z11.52 Encounter for screening for COVID-19
CPT/HCPCS: 0241U; 99212

== ENCOUNTER 2024-03-26 08:00 | Outpatient (AMB) | payer MEDICARE, SELFPAY ==
--- NOTE | 2024-03-26 08:01 | AM.OFFWIN_ITS ---
Intake Vital Signs 03/26/24 08:02 Height 5 ft 2 in Weight 127 lb BMI 23.2 BP 140/100 H Blood Pressure Location Rt brachial Position Sitting Pulse 89 Pulse Source Pulse Oximeter Temp 97.9 F Temp Source Temporal Artery Scan Pulse Oximetry (%) 98 Oxygen Delivery Method Room Air Intake Visit Reasons: EP loss of voice, sinus congestion, cough Intake Note: Patient here for loss of voice, sinus congestion and cough that has been present fro about 1 week. Patient Tobacco Use Status: Never used Tobacco Allergies Tetanus Vaccines and Toxoid Allergy (Verified 03/26/24 08:05) Rash Do you need a note to return to daycare/school/sports/work: No HPI HPI Comments History of Present Illness Details History The patient is a 78-year-old female presenting with difficulty breathing and a persistent cough. The symptoms commenced last Saturday with a tickle in the throat, followed by the development of acute laryngitis and an intensifying cough. The patient reports a history of sinus infections but notes this presentation is atypical, involving a harder time inhaling and concern for potential involvement of the chest or pneumonia. The patient denies any history of smoking or chronic lung conditions such as asthma or COPD and has no prior diagnosis of COVID-19 or symptoms like fever, chills, or ear pain. Until this visit, the patient had not taken or tested with any home COVID tests. She lives alone and has not had close recent contacts reporting illness. To alleviate s ymptoms, the patient has been using saline nasal spray and Synex, guvm-pjw-osxpape medications, and exhibits increased difficulty with inhaling. The nasal sprays are administered instinctively at angles to maximize sinus delivery. Additionally, the patient recalls previous treatment with guaifenesin and codeine for similar symptoms nearly two years ago but has avoided inhalers or neti pots. Physical Exam General: Cooperative, healthy appearing, comfortable and no acute distress Orientation/consciousness: Patient oriented x3 Limitations: No limitations Head: Normal to inspection Ears: Hearing grossly normal bilaterally, external ears normal and TM's normal bilaterally Nose: Normal external nose present, Normal nares present w/congestion Face and sinus: Normal facial exam and Yes sinuses nontender Mouth: Normal oral and palatal mucosa present and moist mucous membranes Throat: Yes tonsils normal, Yes uvula midline. Posterior oropharynx erythema Eyes: Appearance normal, both eyes and all related structures Neck: Normal visual inspection Respiratory: Clear to auscultation bilaterally. Normal respiratory effort, able to speak in complete sentences, no respiratory distress, not tachypneic, no tripod positioning and no use of accessory muscles. Good air movement in lungs, no wheezing Cardiovascular: Regular rate and rhythm. Normal S1 and S2 Skin: No rashes or lesions noted Neuro: Patient oriented x3 Extremities: Normal to inspection and Yes no clubbing, cyanosis or edema [facility] Medical History (Updated 03/26/24 @ 08:17 by Eva Law PA-C) Hypertension Hypocalcemia Hypoglycemia Postoperative hypothyroidism Serum total bilirubin elevated Normocalcemic primary hyperparathyroidism Abnormal SPEP Multinodular non-toxic goiter Hyperparathyroidism Vitamin D deficiency Multinodular thyroid Hyperthyroidism Generalized anxiety disorder Osteoporosis Exposure to confirmed case of COVID-19 Toxic multinodular goiter Surgical History History of parathyroidectomy H/O total thyroidectomy History of tooth extraction Hx of biopsy History of back surgery Family History Father Lung cancer Mother Osteoporosis Multinodular thyroid Old age Maternal Aunt Breast cancer Social History Household Members: None Housing: House Are you a primary home care scheduler to a significant other at home: No Do you presently have visiting nurse or other home services: No Alcohol intake: current Alcohol intake frequency: holidays/special occasions only Patient Tobacco Use Status: Never used Tobacco service: No Current occupational status: retired Current occupational exposures/hazards: No Review of Systems Const All systems reviewed & are unremarkable except as noted in HPI and below Physical Exam Vital Signs: Last Vital Signs Temp 97.9 F 03/26/24 08:02 Pulse 89 03/26/24 08:02 BP 140/100 H 03/26/24 08:02 Pulse Ox 98 03/26/24 08:02 Oxygen Delivery Method Room Air 03/26/24 08:02 BMI result Body Mass Index 23.2 Assessment & Plan Assessment & Plan (1) URI, acute: Code(s): J06.9 - Acute upper respiratory infection, unspecified Plan: Plan - Perform a chest X-ray to rule out pneumonia or other chest pathology. Sent Augmentin to pharmacy, Zpak contraindicated with her citalopram. - Prescribe an albuterol inhaler for acute bronchospasm management and instruction on its usage including priming and inhalation technique. - Prescribe Tessalon Perles, pending pharmacist approval for chewing due to the patient's difficulty swallowing pills. - Sent guaifenesin with codeine as a nighttime cough suppressant, with caution regarding daytime use to prevent sedation. Pt used previously but her is . Patient was informed and verbally consented to the use of an ambient scribe for clinic note documentation during this visit Orders: Orders XR chest 2V Today R05.9 - Cough, unspecified SARS-CoV2/FLU/RSV Today J06.9 - Acute upper respiratory infection, unspecified Medications: New albuterol sulfate 90 mcg/actuation (Ventolin HFA) 2 puffs inhalation Q4-6H PRN 8.5 grams 0RF shortness of breath or wheezing codeine-guaifenesin 10-100 mg/5 mL 10 mL PO Q4-6H PRN 120 mL 0RF cold symptoms amoxicillin-pot clavulanate 875-125 mg 1 tab PO Q12H 10 tabs 0RF Coding Level of Care Code Est Pt Level 4 (01307) Diagnoses URI, acute J06.9
[2024-03-26 08:02] VITALS: BP 140/100; PULSE 89; TEMP 36.6; O2SAT 98; BMI 23.2
== END 2024-03-26 08:35 | disposition home or self-care (01) ==
PROVIDERS: PCP Internal Medicine; Visit Provider Physician Assistant
DX: J06.9 Acute upper respiratory infection, unspecified (principal)

== ENCOUNTER 2024-04-21 10:02 | Outpatient (REF) | payer MEDICARE, SELFPAY ==
[2024-04-21 11:38] LABS: Free T4 (Free Thyroxine) 1.24 ng/dL (0.71-1.85); Thyroid Stimulating Hormone 2.85 uIU/mL (0.32-4.0)
== END 2024-04-21 10:03 | disposition home or self-care (01) ==
LOC: HO.LAB 10:02
PROVIDERS: PCP Internal Medicine; Visit Provider Internal Medicine Endocrinology, Diabetes & Metabolism
DX: E89.0 Postprocedural hypothyroidism (principal)
CPT/HCPCS: 36415; 84439; 84443

== ENCOUNTER 2024-04-30 08:23 | Outpatient (AMB) | payer MEDICARE, SELFPAY ==
--- NOTE | 2024-04-30 08:29 | A.OFFVIS_ITS ---
Vital Signs 04/30/24 08:31 Height 5 ft 2 in Weight 129 lb 3.054 oz BMI 23.6 BP 152/72 H Blood Pressure Location Lt brachial Position Sitting Pulse 72 Pulse Source Pulse Oximeter Intake Visit Reasons: f/u hypertension Intake Note: Patient present today for Hypertension follow up. 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 Accompanied by: Self / Same As Patient Allergies Tetanus Vaccines and Toxoid Allergy (Verified 04/30/24 08:32) Rash Medication List - Last Reconciled 04/30/24 by David Garay MD albuterol sulfate 90 mcg/actuation (Ventolin HFA) 2 puffs inhalation Q4-6H PRN amoxicillin-pot clavulanate 875-125 mg 1 tab PO Q12H blood sugar diagnostic (FreeStyle Lite Strips) 4x daily blood-glucose meter (FreeStyle [place] Lite kit) As directed calcium citrate-vitamin D3 200 mg-6.25 mcg (250 unit) (Citracal-D3 Petites) 1 tab PO BID 30 days codeine-guaifenesin 10-100 mg/5 mL 10 mL PO Q4-6H PRN cyanocobalamin (vitamin B-12) 50 mcg PO DAILY escitalopram oxalate (Lexapro) 5 mg PO DAILY lancets (FreeStyle Lancets) 4x daily levothyroxine 75 mcg PO DAILY levothyroxine 88 mcg PO ONCE 90 days mometasone 50 mcg/actuation (Nasonex) 2 sprays intranasal DAILY PRN HPI Comments Details: Has episodes of severe HTN. [place] normetanephrines . No sx of pheo during these episodes . Workup revealed normal metanephrines and normetanephrines but aldosterone was slightly increased and reddened low normal suggesting possibility of primary hyperaldosteronism. Patient is here to discuss results . I had recommended seeing a specialist at [facility] and primary hyperaldosteronism for further workup but the patient did not go for the consultation. Not on hypertension management [facility] Medical History (Updated 03/26/24 @ 08:17 by Eva Law PA-C) Hypertension Hypocalcemia Hypoglycemia Postoperative hypothyroidism Serum total bilirubin elevated Normocalcemic primary hyperparathyroidism Abnormal SPEP Multinodular non-toxic goiter Hyperparathyroidism Vitamin D deficiency Multinodular thyroid Hyperthyroidism Generalized anxiety disorder Osteoporosis Exposure to confirmed case of COVID-19 Toxic multinodular goiter Surgical History History of parathyroidectomy H/O total thyroidectomy History of tooth extraction Hx of biopsy History of back surgery Family History Father Lung cancer Mother Osteoporosis Multinodular thyroid Old age Maternal Aunt Breast cancer Social History Household Members: None Housing: House Are you a primary women's health care nurse practitioner to a significant other at home: No Do you presently have visiting nurse or other home services: No Alcohol intake: current Alcohol intake frequency: holidays/special occasions only Patient Tobacco Use Status: Never used Tobacco service: No Current occupational status: retired Current occupational exposures/hazards: No Physical Exam Vital Signs: Last Vital Signs Pulse 72 04/30/24 08:31 BP 152/72 H 04/30/24 08:31 BMI result Body Mass Index 23.6 Assessment & Plan Assessment & Plan (1) Hypertension: Code(s): I10 - Essential (primary) hypertension Category: Medical Plan: Secondary workup suggests the presence of primary hyperaldosteronism with ratio of aldosterone: Renin of 45. Plan is to arrange a consultation at [facility] with Dr. Pisano for primary hyperaldosteronism workup. We will attempt to call Dr. Pisano to coordinate (2) Postoperative hypothyroidism: Code(s): E89.0 - Postprocedural hypothyroidism Category: Medical Plan: Clinically and biochemically euthyroid on alternate 75 mcg with 88 mcg of levothyroxine Continue current treatment Medications: Refilled levothyroxine Alternate 75 mcg with 88 mcg 88 mcg PO ONCE 90 days 90 tabs 1RF E89.0 - Postprocedural hypothyroidism levothyroxine 75 mcg PO DAILY 30 tabs 5RF Coding Level of Care Code Est Pt Level 3 (83159) Diagnoses Hypertension I10 Postoperative hypothyroidism E89.0
[2024-04-30 08:31] VITALS: BP 152/72; PULSE 72; BMI 23.6
== END 2024-04-30 09:10 | disposition home or self-care (01) ==
PROVIDERS: PCP Internal Medicine; Visit Provider Internal Medicine Endocrinology, Diabetes & Metabolism
DX: I10 Essential (primary) hypertension (principal); E89.0 Postprocedural hypothyroidism
CPT/HCPCS: 99213

== ENCOUNTER → 2024-04-30 08:23 | Outpatient (BNVA) | payer MEDICARE, SELFPAY | PROVIDERS: PCP Internal Medicine; Visit Provider Internal Medicine Endocrinology, Diabetes & Metabolism | DX: I10 Essential (primary) hypertension (principal); E89.0 Postprocedural hypothyroidism | CPT/HCPCS: 99212 ==

== ENCOUNTER 2024-05-14 08:38 | Outpatient (REF) | payer MEDICARE, SELFPAY ==
--- NOTE | ~2024-05-14 | XR_ITS ---
EXAMINATION: XR CHEST CLINICAL INFORMATION: R05.9 - Cough, unspecified COMPARISON: None available. TECHNIQUE: 2 views of the chest were obtained. FINDINGS: The cardiac, hilar, and mediastinal contours are normal. The aorta is mildly calcified. The lungs are clear bilaterally. There is no pneumothorax or pleural effusion. There is no focal osseous or soft tissue abnormality. There are spinal degenerative changes. XR/XR chest 2V IMPRESSION: No active pulmonary disease. Electronically signed by: Manolo Eil MD 05/14/2024 09:12 AM JIMMY
== END 2024-05-14 08:39 | disposition home or self-care (01) ==
LOC: HO.XRAY 08:38
PROVIDERS: Visit Provider Physician Assistant
DX: R05.9 Cough, unspecified (principal)
CPT/HCPCS: 71046

== ENCOUNTER → 2024-05-14 08:42 | Outpatient (BNV) | payer MEDICARE, SELFPAY | PROVIDERS: Visit Provider Radiology Diagnostic Radiology | DX: R05.9 Cough, unspecified (principal) | CPT/HCPCS: 71046 ==

== ENCOUNTER 2024-09-11 08:34 | Outpatient (AMB) | payer MEDICARE, SELFPAY ==
[2024-09-11 08:35] VITALS: BP 124/70; PULSE 71; TEMP 36.5; O2SAT 98; BMI 24.0
--- NOTE | 2024-09-11 08:35 | MHC.OFFWIV ---
Intake Vital Signs 09/11/24 08:35 Height 5 ft 2 in Weight 131 lb 8 oz BMI 24.0 BP 124/70 Blood Pressure Location Rt brachial Position Sitting Pulse 71 Pulse Source Pulse Oximeter Temp 97.7 F Temp Source Oral Pulse Oximetry (%) 98 Oxygen Delivery Method Room Air Intake Visit Reasons: EP-rt side face and upper body ?poison bro[place] Intake Note: Pt presents to the office today for c/o poison bro[place] on right side of face,neck, and upper body. Pt states this started about 4 days ago. Pt states it is very itchy. Patient Tobacco Use Status: Never used Tobacco Allergies Tetanus Vaccines and Toxoid Allergy (Verified 09/11/24 08:38) Rash HPI HPI Comments History of Present Illness Details History of Present Illness - The patient is an 79-year-old female presenting with allergic contact dermatitis. - She reports symptoms started one day prior, following yard work involving vine removal, suspecting it to be poison oak. - These symptoms include significant swelling and itching, with the right eye becoming completely shut this AM, now opened, no changes in vision; and the rash is spreading from the face to the arms. - The patient has experienced similar episodes before with poison oak exposure and has used Tecnu products for relief in the past. Physical Exam General: Cooperative, healthy appearing, comfortable, no acute distress and well developed Orientation: Patient oriented x3 Limitations: No limitations Head: Normal to inspection Ears: Hearing grossly normal bilaterally Nose: Normal External nose present Face and sinus: Swelling noted on the face, particularly around the eyes Eyes: Right eye swollen shut, appearance abnormal Neck: Swelling noted down the neck Respiratory: Normal respiratory effort and able to speak in complete sentences. Skin: as below Neuro: Patient oriented x3 Extremities: maculopapular erythematous rash on right periorbital edema, maculopapular erythematous rash on neck, bilateral arms and right leg PFSH Medical History Hypertension Hypocalcemia Hypoglycemia Postoperative hypothyroidism Serum total bilirubin elevated Normocalcemic primary hyperparathyroidism Abnormal SPEP Multinodular non-toxic goiter Hyperparathyroidism Vitamin D deficiency Multinodular thyroid Hyperthyroidism Generalized anxiety disorder Osteoporosis Exposure to confirmed case of COVID-19 Toxic multinodular goiter Surgical History History of parathyroidectomy H/O total thyroidectomy History of tooth extraction Hx of biopsy History of back surgery Family History Father Lung cancer Mother Osteoporosis Multinodular thyroid Old age Maternal Aunt Breast cancer Social History Household Members: None Housing: House Are you a primary career education teacher to a significant other at home: No Do you presently have visiting nurse or other home services: No Alcohol intake: current Alcohol intake frequency: holidays/special occasions only Patient Tobacco Use Status: Never used Tobacco service: No Current occupational status: retired Current occupational exposures/hazards: No Review of Systems Const All systems reviewed & are unremarkable except as noted in HPI and below Physical Exam Vital Signs: Last Vital Signs Temp 97.7 F 09/11/24 08:35 Pulse 71 09/11/24 08:35 BP 124/70 09/11/24 08:35 Pulse Ox 98 09/11/24 08:35 Oxygen Delivery Method Room Air 09/11/24 08:35 BMI result Body Mass Index 24.0 Assessment & Plan Assessment & Plan (1) Allergic dermatitis: Code(s): L23.9 - Allergic contact dermatitis, unspecified cause Plan: Prescribed prednisone 40 mg daily for five days, emphasizing morning intake due to potential side effects. Explained its systemic benefits considering periorbital right eye involvement, with precautions shared related to its adverse effects like increased energy, mood changes, and appetite fluctuation. Triamcinolone cream was prescribed for additional symptomatic relief on the body, excluding areas near the eyes. Continued use of [id number] Benadryl was suggested at bedtime to aid with nighttime itching. E-prescriptions have been sent to the patient's pharmacy for prompt initiation to control and prevent further escalation of her symptoms. Patient was informed and verbally consented to the use of an ambient scribe for clinic note documentation during this visit. Medications: New prednisone 40 mg (2 x 20 mg) PO QAM 10 tabs 0RF triamcinolone acetonide 0.1% 1 appl topical BID 30 grams 0RF Coding Level of Care Code Est Pt Level 3 (38203) Diagnoses Allergic dermatitis L23.9
--- OUTSIDE RECORDS SUMMARY | 2024-09-11 08:36 | XMS_ITS ---
Author Name [facility] Organization Unknown Problems Problem Status Onset Date Problem Type Date of Resoluti on Source Hypoglycemia active EncounterDiagnosisAct [facility]
== END 2024-09-11 09:21 | disposition home or self-care (01) ==
PROVIDERS: Visit Provider Physician Assistant
DX: L23.9 Allergic contact dermatitis, unspecified cause (principal)

== ENCOUNTER → 2024-09-11 08:34 | Outpatient (BNVA) | payer MEDICARE, SELFPAY | DX: L23.9 Allergic contact dermatitis, unspecified cause (principal) | CPT/HCPCS: 99212 ==

== ENCOUNTER 2024-10-08 09:19 | Outpatient (AMB) | payer MEDICARE, SELFPAY ==
[2024-10-08 09:42] VITALS: BP 142/62; PULSE 62; RESP 16; TEMP 36.7; O2SAT 96; BMI 24.0
--- NOTE | 2024-10-08 09:42 | AM.OFFVISMDC ---
Intake Vital Signs 10/08/24 09:42 Height 5 ft 2 in Weight 131 lb BMI 24.0 BP 142/62 H Blood Pressure Location Rt brachial Position Sitting Respiration 16 Pulse 62 Pulse Source Pulse Oximeter Temp 98.1 F Temp Source Oral Pulse Oximetry (%) 96 Oxygen Delivery Method Room Air Intake Visit Reasons: SWV G0439 Intake Note: Pt is here today for her SWV Allergies Tetanus Vaccines and Toxoid Allergy (Verified 10/08/24 10:29) Rash Medication List - Last Reconciled 10/08/24 by Erika Sharif MD blood sugar diagnostic (FreeStyle Lite Strips) 4x daily blood-glucose meter (FreeStyle [place] Lite kit) As directed escitalopram oxalate (Lexapro) 5 mg PO DAILY lancets (FreeStyle Lancets) 4x daily levothyroxine 88 mcg PO ONCE 90 days levothyroxine 75 mcg PO DAILY HPI SWV G0439 HPI Details SWV ? 79 year old lady with history of postoperative hypothyroidism, osteoarthritis, normocalcemic primary hyperparathyroidism, history of multinodular nontoxic goiter with hyperthyroidism s/p total thytoidectomy, osteoporosis previously on alendronate and Fosamax and was on drug holiday, followed by endocrine, has generalized anxiety disorder presents for her subsequent Annual Wellness Visit.? She had her mammogram done 01/01/23 which came back with negative findings . No longer gets Pap smears. She has never had a colon cancer screening, does not want do any screening. She has been diagnosed to have osteoporosis as noted on bone density scan done in 2020, previously on alendronate and Fosamax, but does not want to get any further testing and refused treatment. Her last lipid screening was done in 2020 which showed an LDL of 144 mg/dL, diabetes mellitus screening done 12/27/2022 showed fasting glucose at 110 mg/dL. She has had for COVID vaccine but does not want to get further booster shots, does not want to get a flu shot, pneumococcal vaccine or shingles vaccine. ? Medical / Social History Reviewed? Past Medical History ?Yes . ? [place] of Care / Care Team list updated ?Yes . ? Surgical/Hospitalization History ?Yes . ? Current Medications (including OTC and supplements) ?Yes . ? Family History ?Yes . ? Tobacco Control form ?Yes . ? AUDIT-C (Alcohol use) form ?Yes . ? Illicit drug use in Social History ?Yes . ? Current diagnosis of depression? ?No ? Appropriate PHQ2/PHQ9 completed ?Yes, controlled on escitalopram . ? Data entered by ?[employer] Developer and reviewed by provider ? Fall Risk ? Fall History? Have you had any falls with injury in the past year? ?No . ? Have you had two or more falls in the past year? ?No . ? Fall Risk Assessment: ?No falls in the past year . ? HRA filled out by the patient, reviewed by Provider and scanned. ?SWV ? Balance? Romberg ?negative ? Tandem walk ?Yes . ? Walk and Turn ?Yes . ? Rise from sit to stand ?Yes . ?Vision? Corrective lens none ? Vision screen ? Up-to-date, sees Dr. Del Castillo in [place] ?Hearing? Whisper test ?pass . ?Written Plan?Completed. See Patient Documents.? [facility] Medical History Hypertension Hypocalcemia Hypoglycemia Postoperative hypothyroidism Serum total bilirubin elevated Normocalcemic primary hyperparathyroidism Abnormal SPEP Multinodular non-toxic goiter Hyperparathyroidism Vitamin D deficiency Multinodular thyroid Hyperthyroidism Generalized anxiety disorder Osteoporosis Exposure to confirmed case of COVID-19 Toxic multinodular goiter Surgical History History of parathyroidectomy H/O total thyroidectomy History of tooth extraction Hx of biopsy History of back surgery Family History Father Lung cancer Mother Osteoporosis Multinodular thyroid Old age Maternal Aunt Breast cancer Social History Household Members: None Housing: House Are you a primary urgent care nurse practitioner to a significant other at home: No Do you presently have visiting nurse or other home services: No Alcohol intake: current Alcohol intake frequency: holidays/special occasions only Patient Tobacco Use Status: Never used Tobacco service: No Current occupational status: retired Current occupational exposures/hazards: No Questionnaire Medicare Wellness Checkup What is your age?: 79 or older What gender do you identify with?: female During the past 4 weeks, how much have you been bothered by emotional problems such as feeling anxious, depressed, irritable, sad or downhearted, and blue?: not at all During the past 4 weeks, has your physical & emotional health limited your social activities with family, friends, neighbors, or groups?: not at all During the past 4 weeks, how much bodily pain have you generally had?: very mild pain During the past 4 weeks, was someone available to help you if you needed & wanted help?: yes, a little During the past 4 weeks, what was the hardest physical activity you could do for at least 2 minutes?: very heavy Can you get to places out of walking distance without help? (For eg., can you travel alone on buses, taxis or drive your car?): Yes Can you go shopping for groceries or clothes without someone's help?: Yes Can you prepare your own meals?: Yes Can you do your housework without help?: Yes Because of any health problems, do you need the help of another person with your personal care needs such as eating, bathing, dressing or getting around the house?: No Can you handle your own money without help?: Yes During the past 4 weeks, how would you rate your health in general?: excellent During the past 4 weeks how have things been going for you?: good & bad parts about equal Are you having difficulties driving your car?: no Do you always fasten your seat belt when you are in a car?: yes, usually During past 4 weeks, have you been bothered by the following: never: Falling or dizzy when standing up, Sexual problems?, Trouble eating well?, Teeth or denture problems? and Problems using the telephone? and seldom: Tiredness or fatigue? Have you fallen 2 or more times in the past year?: No Are you afraid of falling?: No Are you a smoker?: no During the past 4 weeks, how many drinks of wine, beer, or other alcoholic beverages did you have?: 1 drink or less per week Do you exercise for about 20 minutes 3 or more times a week?: yes, most of the time Have you been given information to help with the following?: no: Hazards in your house that might hurt you? and no: Keeping track of your medications? How often do you have trouble taking medicines the way you have been told to take them?: I always take medicine as prescribed How confident are you that you can control & manage most of your health problems?: very confident What is your race?: White Mini Mental State Exam (MMSE) Orientation What is the (year) (season) (date) (day) (month)?: year (2024), season (summer), date (10/08/2024), day () and month (September) Where are we (state) (county) (town or city) (hospital) (floor)?: state ([place]), [facility] ([place]), town or city ([place]) and hospital/clinic ([facility]) Score Score: 9 Activity of Daily Living Bathing - sponge bath, tub bath or shower: receives no assistance (gets in/out by self, if usual bathing means Dressing - getting clothes from closets & drawers, including inner/outer garments & fasteners.: gets clothes & gets completely dressed without help Toileting - going to the 'toilet room' for urine/bowel elimination & cleaning self/arranging clothes: goes to toilet room, cleans self, arranges clothes without help Transfer: moves in & out of bed and chair without help (may use support object) Continence: controls urination/bowel movements completely by self Feeding: feeds self without help Total Score: 0 Information obtained from: patient Using telephone: independent Traveling: independent Shopping: independent Preparing meals: independent Housework: independent Taking medicine: independent Managing money: independent PHQ-9 Over the last 2 weeks, how often have you been bothered by any of the following problems? 1. Little interest or pleasure in doing things: not at all 2. Feeling down, depressed, or hopeless: several days 3. Trouble falling or staying asleep, or sleeping too much: not at all 4. Feeling tired or having little energy: not at all 5. Poor appetite or overeating: not at all 6. Feeling bad about yourself - or that you are a failure or have let yourself or your family down: not at all 7. Trouble concentrating on things, such as reading the newspaper or watching television: not at all 8. Moving or speaking so slowly that other people could have noticed. Or the opposite - being so fidgety or restless that you have been moving around a lot more than usual: not at all 9. Thoughts that you would be better off or of hurting yourself in some way: not at all Total score: 1 Depression Screening Interpretation: Negative Depression Screening Done: Yes 27473 - PHQ-9 Billing: Yes Source: Developed by Drs. David Calderon, So Sandoval, Beka Rene and colleagues, with an educational hemalatha from [employer]. Physical Exam Vital Signs: Last Vital Signs Temp 98.1 F 10/08/24 09:42 Pulse 62 10/08/24 09:42 Resp 16 10/08/24 09:42 BP 142/62 H 10/08/24 09:42 Pulse Ox 96 10/08/24 09:42 Oxygen Delivery Method Room Air 10/08/24 09:42 BMI result Body Mass Index 24.0 Assessment & Plan Assessment & Plan (1) Encounter for subsequent annual wellness visit (AWV) in Medicare patient: Code(s): Z00.00 - Encounter for general adult medical examination without abnormal findings Plan: With a wellness checklist reviewed, discussed with patient and updated. (2) Dyslipidemia: Code(s): E78.5 - Hyperlipidemia, unspecified Plan: Patient tries to follow a healthy diet and stays active, still please golf regularly (3) Postoperative hypothyroidism: Code(s): E89.0 - Postprocedural hypothyroidism Plan: Currently on levothyroxine, followed by endocrine clinic (4) Osteoporosis: Code(s): M81.0 - Age-related osteoporosis without current pathological fracture Qualifiers: Osteoporosis type: age-related Presence of current pathological fracture: without current pathological fracture Qualified Code(s): M81.0 - Age-related osteoporosis without current pathological fracture Plan: Declined further treatment (5) Normocalcemic primary hyperparathyroidism: Comment: Seen by Dr. Randall, recommended parathyroidectomy Code(s): E21.0 - Primary hyperparathyroidism Plan: Currently followed by Dr. Garay who has referred patient for further evaluation to [facility], and states that she did not get appointment and will talked with Dr. Garay to see if we can send her somewhere more accessible to her (6) Generalized anxiety disorder: Code(s): F41.1 - Generalized anxiety disorder Plan: Continue escitalopram 5 mg daily (7) Advanced directives, counseling/discussion: Code(s): Z71.89 - Other specified counseling Plan: Initiated the conversation about Advanced Directives. Advanced Directives help patients prepare for current and future decisions about their medical treatment and place of care. Discussed with patient that it is a process where a patients current condition and prognosis are reviewed, their wishes for information regarding their illness are elicited, and likely medical dilemmas are presented and options discussed. Healthcare proxy form completed today. Then patient already has completed MOLST form in 2022. These forms The form can be amended as needed, reviewed yearly and make changes as needed Orders: Orders Glucose Fasting 10/08/24 E78.5 - Hyperlipidemia, unspecified, Z13.1 - Encounter for screening for diabetes mellitus Lipid Panel 10/08/24 E78.5 - Hyperlipidemia, unspecified, Z13.1 - Encounter for screening for diabetes mellitus Quality Reporting (2019) Depression/Bipolar (159/160/161/177) PHQ-9: Total score: 1 Coding Level of Care Code Medicare Subsequent (G0439) Diagnoses Encounter for subsequent annual wellness visit (AWV) in Medicare patient Z00.00 Dyslipidemia E78.5 Postoperative hypothyroidism E89.0 Age-related osteoporosis without current pathological fracture M81.0 Osteoporosis type: age-related Presence of current pathological fracture: without current pathological fracture Normocalcemic primary hyperparathyroidism E21.0 Generalized anxiety disorder F41.1 Advanced directives, counseling/discussion Z71.89 CPT Codes Advance Care Planning - Time spent: 16-45 minutes ([id number]) Additional Codes PHQ-9 - 15997 - PHQ-9 Billing: Yes ([id number]) Advance Care Planning Advance Care Planning discussion: Completed/Scanned Date of discussion: 10/08/24 Who was present: patient Forms completed: Health Care Proxy and MOLST (done in 2022) Time spent: 16-45 minutes Actual minutes spent: 3
== END 2024-10-08 10:26 | disposition home or self-care (01) ==
LOC: HO.HMCC 09:20
PROVIDERS: PCP Internal Medicine; Visit Provider Internal Medicine
DX: Z00.00 Encounter for general adult medical examination without abnormal findings (principal); E78.5 Hyperlipidemia, unspecified; E89.0 Postprocedural hypothyroidism; M81.0 Age-related osteoporosis without current pathological fracture; E21.0 Primary hyperparathyroidism; F41.1 Generalized anxiety disorder; Z71.89 Other specified counseling

== ENCOUNTER → 2024-10-08 09:19 | Outpatient (BNVA) | payer MEDICARE, SELFPAY | PROVIDERS: PCP Internal Medicine; Visit Provider Internal Medicine | DX: Z00.00 Encounter for general adult medical examination without abnormal findings (principal); E78.5 Hyperlipidemia, unspecified; E89.0 Postprocedural hypothyroidism; M81.0 Age-related osteoporosis without current pathological fracture; E21.0 Primary hyperparathyroidism; F41.1 Generalized anxiety disorder; Z71.89 Other specified counseling | CPT/HCPCS: 96127 ==

== ENCOUNTER 2024-12-21 09:07 | Outpatient (REF) | payer MEDICARE, SELFPAY ==
--- NOTE | ~2024-12-21 | MM_ITS ---
EXAMINATION: DXA BONE DENSITY AXIAL HISTORY: M81.0 - Age-related osteoporosis without current pathological fracture TECHNIQUE: [employer] Dual energy absorptiometry (DEXA) of the lumbar spine, total left hip, and femoral neck was performed. COMPARISON: Comparison is made with the prior examination dated 10/28/2020. FINDINGS: The bone mineral density of the lumbar spine is 0.848 g/cm2, corresponding to a T-score of -2.7, and a Z-score of -0.6. This is indicative of osteoporosis. This represents a BMD change of 0.0% compared to the prior exam. This is not statistically significant. The bone mineral density of the left total hip is 0.775 g/cm2, corresponding to a T-score of -1.8, and a Z-score of 0.4. This is indicative of osteopenia. This represents a BMD change of -1.8% compared to the prior exam. This is not statistically significant. The bone mineral density of the left femoral neck is 0.724 g/cm2, corresponding to a T-score of -2.3, and a Z-score of 0.1. This is indicative of osteopenia. This represents a BMD change of 3.7% compared to the prior exam. MM/XR DEXA axial skeleton IMPRESSION: Based on bone mineral density, and according to World Health Organization (WHO) criteria, the diagnosis is consistent with osteoporosis. Statistically, 68% of repeat scans fall within 1 SD (+/- 0.010 g/cm2 for AP spine L1-L4) and 1 SD (+/- 0.012 g/cm2 for femur total) FRAX is a trademark of the [employer]'s [place] for Metabolic Bone Disease, a World Health Organization (WHO) Collaborating Center. Electronically signed by: David Olsen MD 12/21/2024 09:45 AM EDT
== END 2024-12-21 09:08 | disposition home or self-care (01) ==
LOC: HO.MAMMO 09:07
PROVIDERS: PCP Internal Medicine; Visit Provider Internal Medicine Endocrinology, Diabetes & Metabolism
DX: M81.0 Age-related osteoporosis without current pathological fracture (principal)
CPT/HCPCS: 77080

== ENCOUNTER → 2024-12-21 09:15 | Outpatient (BNV) | payer MEDICARE, SELFPAY | PROVIDERS: PCP Internal Medicine; Visit Provider Radiology Diagnostic Radiology | DX: E28.39 Other primary ovarian failure (principal) | CPT/HCPCS: 77080 ==

== ENCOUNTER 2025-01-04 08:52 | Outpatient (AMB) | payer MEDICARE, SELFPAY ==
--- NOTE | 2025-01-04 09:03 | MHC.OFFVIS ---
Vital Signs 01/04/25 09:04 Height 5 ft 2.56 in Weight 129 lb 13.636 oz BMI 23.3 BP 146/68 H Blood Pressure Location Rt brachial Position Sitting Pulse 77 Pulse Source Pulse Oximeter Pulse Oximetry (%) 99 Oxygen Delivery Method Room Air Intake Visit Reasons: Osteoporosis Intake Note: Patient present today for Osteoporosis. Allergies Tetanus Vaccines and Toxoid Allergy (Verified 01/04/25 09:06) Rash Medication List - Last Reconciled 01/04/25 by Esther Curtis RN escitalopram oxalate (Lexapro) 5 mg PO DAILY levothyroxine 88 mcg PO ONCE 90 days levothyroxine 75 mcg orally; HPI Comments Details: 79 YO Female with a PMHx of Osteoporosis and Toxic MNG who is seen in F/U for the same. She was previously followed by Dr. Amaral and then Dr. Coello. 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 History is somewhat unclear but it does appear she did not have a thyroid uptake and scan until 2015. 24 hour uptake was increased to 35% in a heterogenous pattern, consistent with a toxic MNG. She also has multiple large thyroid nodules. On thyroid uptake and scan itt is unclear which nodules are considered hot nodules, and which are cold. 07/06/2021 she underwent FNA biopsy of her LMP 4.0 cm and her RMP 2.3 cm thyroid nodules, both with benign cytology. She then underwent a total thyroidectomy 07/18/2022. Official surgical path was benign. She was started on levothyroxine 88 mcg PO daily subsequently, and TSH remains at goal. 2) Osteoporosis She has a long history of Osteoporosis and was treated in the past with oral bisophosphonates including actonel and fosamax. She tolerated treatment well. She states she used treatment for over 10 years, and then was placed on a drug holiday. She does not recall exactly when the drug holiday started, but believes it was over 5-10 years ago. Recent DEXA showed stability in the bone density We completed a full workup and this was initially thought to represent normocalcemic primary hyperparathyroidism with labs 03/01/2021 showing Calcium 9.7, Albumin 4.1, Vitamin D 32.3 with pTH 83. Her 24 hour urine calcium was an adequate collection and was elevated to 363. She underwent surgical resection of her L superior parathyroid 07/18/2022. Calcium is now low. Workup also revealed elevated M-Protein on SPEP. She is undergoing evaluation by Heme-Onc for this, and was diagnosed with MGUS. No history of pathologic fracture or ONJ. ?Has 2 servings of dietary calcium per day in the form of milk and ice cream. Does not take a Calcium supplement. Does not take a Vitamin D supplement. ?Denies ever using PPI, anticoagulant, antiepileptic or glucocorticoid medication. ?Does weight bearing exercise most days per week in the form of walking or yard work. 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 Menses always regular. . Did not breastfeed. Menopause was age 54. Did not use HRT after. ?History of Kidney stones: Has had multiple episodes of kidney stones. Unsure if these are calcium stones. ?Has a postive Family history of Osteoporosis in her Mother. ?She is not currently UTD on dental cleanings. cm2. Labs: Laboratory Tests 11/02/21 11/02/21 11/04/21 08:47 08:47 Unknown Sodium Potassium Creatinine Estimated GFR Phosphorus Albumin 25-OH Vitamin D Total TSH 0.80 Free T4 1.18 PTH Intact Calcium (PTH Intact) Ur 24 Hour Volume Ur Creatinine 24 Hour 0.85 Ur Calcium 24 Hr 176 11/04/21 03/22/22 03/22/22 Unknown 09:33 09:33 Sodium Potassium Creatinine 0.97 Estimated GFR 56 Phosphorus 2.7 Albumin 3.9 25-OH Vitamin D Total 32.9 TSH Free T4 PTH Intact 81 H Calcium (PTH Intact) 9.3 Ur 24 Hour Volume 1350 Ur Creatinine 24 Hour Ur Calcium 24 Hr 08/20/22 08/20/22 10:39 10:39 Sodium 143 Potassium 3.9 Creatinine 0.90 Estimated GFR > 60 Phosphorus Albumin 3.9 25-OH Vitamin D Total 44.6 TSH 0.34 Free T4 PTH Intact 48 Calcium (PTH Intact) 8.3 L Ur 24 Hour Volume Ur Creatinine 24 Hour Ur Calcium 24 Hr The patient is an 79-year-old female presenting with osteoporosis management and hypertension evaluation. The patient has a history of osteoporosis, which has been stable over the past few years as indicated by bone density tests. She previously took Fosamax for about 10 years and has tried various osteoporosis medications. The bone density remains just over the border of the spine at -2.7, which is stable and not statistically significant from previous measurements. The patient reports hypertension with a blood pressure reading of 146/68 mmHg during the visit. She is not currently on any antihypertensive medication and monitors her blood pressure at home, noting variability with anxiety and activity. Home readings sometimes show lower values, such as 119 mmHg systolic, when relaxed. There is a consideration of primary hyperaldosteronism due to a high pbhnfclqjah-zj-bbkja ratio, but the patient is not keen on surgical intervention due to age. The plan includes starting a low dose of spironolactone to manage blood pressure and monitor its effects. - Fosamax: Taken for 10 years for osteoporosis management. - Various osteoporosis medications: Tried over the years. - Previous blood pressure medication: Discontinued due to side effects during physical activity. The patient engages in golf, which she plays regularly, and has experienced symptoms such as feeling wishy-washy during physical activity when on previous blood pressure medication. [facility] Medical History Hypertension Hypocalcemia Hypoglycemia Postoperative hypothyroidism Serum total bilirubin elevated Normocalcemic primary hyperparathyroidism Abnormal SPEP Multinodular non-toxic goiter Hyperparathyroidism Vitamin D deficiency Multinodular thyroid Hyperthyroidism Generalized anxiety disorder Osteoporosis Exposure to confirmed case of COVID-19 Toxic multinodular goiter Surgical History History of parathyroidectomy H/O total thyroidectomy History of tooth extraction Hx of biopsy History of back surgery Family History Father Lung cancer Mother Osteoporosis Multinodular thyroid Old age Maternal Aunt Breast cancer Social History Household Members: None Housing: House Are you a primary healthcare liaison to a significant other at home: No Do you presently have visiting nurse or other home services: No Alcohol intake: current Alcohol intake frequency: holidays/special occasions only Patient Tobacco Use Status: Never used Tobacco service: No Current occupational status: retired Current occupational exposures/hazards: No Physical Exam Vital Signs: BMI result Body Mass Index 23.3 Const Other: - Cardiovascular: Blood pressure measured at 146/68 mmHg. Assessment & Plan Assessment & Plan (1) Osteoporosis: Code(s): M81.0 - Age-related osteoporosis without current pathological fracture Category: Medical Qualifiers: Osteoporosis type: age-related Presence of current pathological fracture: without current pathological fracture Qualified Code(s): M81.0 - Age-related osteoporosis without current pathological fracture Plan: Is 79-year-old white female with a history of osteoporosis who took 10 years of bisphosphonate therapy would stable bone density and no recent fracture. Secondary workup was negative. We will check urine NTX. If urine NTX is suppressed we will continue drug holiday by giving calcium and vitamin-D only. Recheck 25 hydroxy vitamin-D. If urine NTX rises, could reinitiate the bisphosphonate or abuse Prolia (2) Postoperative hypothyroidism: Code(s): E89.0 - Postprocedural hypothyroidism Category: Medical Plan: Appears clinically euthyroid and eat mcg levothyroxine . We will recheck TSH and free T4 and adjust levothyroxine accordingly. (3) Hypertension: Code(s): I10 - Essential (primary) hypertension Category: Medical Plan: 2. Hypertension The patient's blood pressure is elevated at 146/68 mmHg. A low dose of spironolactone at 12.5 mg is recommended to manage blood pressure, with follow-up blood tests to monitor electrolytes in 10 days and renin levels in 2-3 mos . Home blood pressure monitoring is advised to assess variability. 3. Primary hyperaldosteronism The elevated bgjnbffgkzn-ca-[id number] ratio suggests this condition. Due to the patient's age, surgical intervention is not preferred. Spironolactone will be used to manage symptoms, and further evaluation will be based on response to treatment. - Monitor blood pressure at home regularly and record the readings. - Start taking spironolactone as prescribed, and report any side effects such as dizziness. - Schedule follow-up blood tests in 10 days to check electrolytes and renin levels. - Maintain adequate hydration and monitor sodium intake. - Follow up in three months for further evaluation and testing. The patient had an opportunity to ask questions regarding treatment plan. The patient expressed understanding and agreement with the above treatment plan. Patient was informed and verbally consented to the use of an ambient scribe for clinic note documentation during this visit. Orders: Orders Basic Metabolic Panel 10 Days I10 - Essential (primary) hypertension Collagen Crosslinks NTX Today M81.0 - Age-related osteoporosis without current pathological fracture Renin 3 Months I10 - Essential (primary) hypertension Vitamin D 25-OH Total Today M81.0 - Age-related osteoporosis without current pathological fracture Medications: New spironolactone (Aldactone) 12.5 mg (1/2 x 25 mg) PO DAILY 15 tabs 0RF Coding Level of Care Code Est Pt Level 3 (34735) Diagnoses Age-related osteoporosis without current pathological fracture M81.0 Osteoporosis type: age-related Presence of current pathological fracture: without current pathological fracture Postoperative hypothyroidism E89.0 Hypertension I10
[2025-01-04 09:04] VITALS: BP 146/68; PULSE 77; O2SAT 99; BMI 23.3
== END 2025-01-04 09:34 | disposition home or self-care (01) ==
LOC: HO.ENCR 08:52
PROVIDERS: PCP Internal Medicine; Visit Provider Internal Medicine Endocrinology, Diabetes & Metabolism
DX: M81.0 Age-related osteoporosis without current pathological fracture (principal); E89.0 Postprocedural hypothyroidism; I10 Essential (primary) hypertension
CPT/HCPCS: 99213

== ENCOUNTER → 2025-01-04 08:52 | Outpatient (BNVA) | payer MEDICARE, SELFPAY | PROVIDERS: PCP Internal Medicine; Visit Provider Internal Medicine Endocrinology, Diabetes & Metabolism | DX: M81.0 Age-related osteoporosis without current pathological fracture (principal); E89.0 Postprocedural hypothyroidism; I10 Essential (primary) hypertension | CPT/HCPCS: 99212 ==

== ENCOUNTER 2025-01-14 07:32 | Outpatient (REF) | payer MEDICARE, SELFPAY ==
[2025-01-14 08:52] LABS: Anion Gap 10 (12-20); Blood Urea Nitrogen 26 mg/dL (9-16); Calcium 8.2 mg/dL (8.4-10.2); Carbon Dioxide 27 mmol/L (22-29); Chloride 108 mmol/L (96-108); Estimated Glomerular Filt Rate 56; Potassium 3.9 mmol/L (3.3-5.1); Sodium 141 mmol/L (135-145)
[2025-01-14 09:10] LABS: Free T4 (Free Thyroxine) 1.34 ng/dL (0.71-1.85); Thyroid Stimulating Hormone 1.98 uIU/mL (0.32-4.0)
[2025-01-19 17:47] LABS: NTXCreaRU 177 mg/dL (20-275)
== END 2025-01-14 07:33 | disposition home or self-care (01) ==
LOC: HO.LAB 07:32
PROVIDERS: Absent Provider Internal Medicine Endocrinology, Diabetes & Metabolism; PCP Internal Medicine; Visit Provider Internal Medicine
DX: E89.0 Postprocedural hypothyroidism (principal); M81.0 Age-related osteoporosis without current pathological fracture; I10 Essential (primary) hypertension
CPT/HCPCS: 36415; 80048; 82306; 82523; 84439; 84443